=== PATIENT | female | born 1950 | race Caucasian/White ===

== ENCOUNTER 2019-12-13 12:00 | Inpatient (IN) | payer MEDICARE ==
[~2019-12-13] VITALS: Ht 177.8 cm; Wt 109.5 kg
[2019-12-13 09:51] LABS: APPEARANCE,URINE CLOUDY (CLEAR); BILIRUBIN,URINE SMALL (NEGATIVE); COLOR,URINE YELLOW (YELLOW); GLUCOSE, URINE (UA) NEGATIVE (NEGATIVE); KETONES,URINE 5 mg/dL (NEGATIVE); LEUKOCYTE ESTERASE ,URINE MODERATE (NEGATIVE); NITRATE,URINE NEGATIVE (NEGATIVE); OCCULT BLOOD,URINE NEGATIVE (NEGATIVE); PH,URINE 5.5 (5.0-8.0); PROTEIN,URINE NEGATIVE (NEGATIVE); UROBILINOGEN,URINE 0.2 mg/dL (0.2-1.0)
[2019-12-13 09:56] LABS: BACTERIA,URINE Few /HPF (None Seen); HYALINE CASTS, URINE 0-1 /LPF (0-1 /LPF); MUCUS,URINE Rare LPF (None Seen); RBC,URINE 0-1 /HPF (0-1); SQUAMOUS EPITHELIAL CELL,UR Few /HPF (0-2)
[2019-12-13 10:12] LABS: BASOPHILS % (AUTO) 0.5 % (0.0-5.0); EOSINOPHILS % (AUTO) 2.4 % (0.0-8.0); HEMATOCRIT 42.2 % (36-48); LYMPHOCYTES % (AUTO) 26.1 % (21.0-51.0); MEAN CORPUSCULAR HEMOGLOBIN 30.5 pg (27.0-33.0); MEAN CORPUSCULAR HGB CONC 32.5 g/dL (32.0-36.0); MONOCYTES % (AUTO) 6.3 % (3.0-13.0); NEUTROPHILS % (AUTO) 64.4 % (40.0-77.0); PLATELET COUNT (AUTO) 331 K/uL (130-400); RED BLOOD CELL COUNT(AUTO) 4.49 MIL/uL (4.00-5.50); RED CELL DISTRIBUTION WIDTH 13.3 % (11.0-15.5); WHITE BLOOD COUNT (AUTO) 7.5 K/uL (4.8-10.8)
[2019-12-13 10:17] LABS: CREATININE 0.8 mg/dL (0.5-1.5); POTASSIUM 4.2 mmol/L (3.5-5.1)
[2019-12-13 10:20] LABS: INR 0.97 (0.85-1.15); PROTHROMBIN TIME 10.5 SEC (9.6-11.6)
--- NOTE | 2019-12-18 11:21 | NUR ---
UA INFORMED DR. NICOLE OF ABNORMAL UA. NO ORDERS RECEIVED. PROCEED WITH PLANNED PROCEDURE
[2019-12-18 12:58] VITALS: BP 139/68
[2019-12-18] MEDS ORDERED: LOSA100T58 PO (13:50)
[2019-12-18] MEDS ORDERED: CETI-89 PO (13:50)
[2019-12-18] MEDS ORDERED: NASAL RINSE NASAL (13:50)
[2019-12-18] MEDS ORDERED: ALBU8.5H8 IH (13:50)
[2019-12-18] MEDS ORDERED: VITAD50000 PO (13:50)
[2019-12-18] MEDS ORDERED: OXYM30SP27 NS (13:50)
[2019-12-18] MEDS ORDERED: FLUT16H NS (13:50)
[2019-12-18] MEDS ORDERED: BEPO10DR OU (13:50)
[2019-12-18] MEDS ORDERED: IPRA21SP NS (13:50)
[2019-12-18] MEDS ORDERED: FLUT1AER IH (13:50)
[2019-12-18] MEDS ORDERED: FELO5TAB48 PO (13:50)
[2019-12-18] MEDS ORDERED: TRAM50TA4 PO (13:50)
[2019-12-18] MEDS ORDERED: CHLO4TAB32 PO (13:50)
[2019-12-19] VITALS (24 sets, daily range): BP systolic 111–143; BP diastolic 53–85
[2019-12-19] MEDS ORDERED: CEFAZOLIN SODIUM 1 GM VIAL IVP SCH (05:00)
--- NOTE | 2019-12-19 10:10 | NUR ---
preop pt laying comfortably on stretcher in no distress. pt oriented to call light and room. will continue to monitor pt.
[2019-12-19] MEDS ORDERED: LACTATED RINGERS 1000ML 1,000 ML IV ONE (10:21)
[2019-12-19] MEDS ORDERED: CEFAZOLIN SODIUM 1 GM VIAL ONE (14:08)
[2019-12-19] MEDS ORDERED: TRANEXAMIC ACID 1000MG/10ML ONE ×2 (14:08→19:30)
[2019-12-19] MEDS ORDERED: CELECOXIB 200 MG CAP ONE (14:12)
[2019-12-19] MEDS ORDERED: ACETAMINOPHEN EXTRA STRENGTH 500 MG TABLET ONE (14:13)
[2019-12-19] MEDS ORDERED: KETOROLAC TROMETHAMINE 15MG/ML ONE (14:14)
[2019-12-19] MEDS ORDERED: SCOPOLAMINE HYDROBROMIDE 1 EACH ADH..PATCH TD ONE (15:14)
[2019-12-19] MEDS ORDERED: ROPIVACAINE 0.5% 5MG/ML 30ML IJ ONE (15:38)
[2019-12-19] MEDS ORDERED: SCOPOLAMINE HYDROBROMIDE 1 EACH ADH..PATCH TD SCH (16:15)
[2019-12-19] MEDS ORDERED: EPHEDRINE SULFATE 50 MG/ML AMPULE ONE ×2 (16:23→17:56)
[2019-12-19] MEDS ORDERED: ROCURONIUM 10MG/1ML SYR 10 MG/ML ML ONE (16:25)
[2019-12-19] MEDS ORDERED: CEFAZOLIN SODIUM 1 GM VIAL IRRIG ONE (16:30)
[2019-12-19] MEDS ORDERED: NEOSTIGMINE 5MG/5ML SYR IV ONE (18:49)
[2019-12-19] MEDS ORDERED: GLYCOPYRROLATE 1 MG/5 ML SYRINGE ONE (18:49)
[2019-12-19] MEDS ORDERED: FERROUS FUMARATE 324 MG TABLET PO PRN (19:00)
[2019-12-19] MEDS ORDERED: POTASSIUM CHLORIDE 20MEQ/100ML 100 ML IV PRN (19:00)
[2019-12-19] MEDS ORDERED: DiphenhydrAMINE HCL 50 MG/ML VIAL IVP PRN (19:00)
[2019-12-19] MEDS ORDERED: KETOROLAC TROMETHAMINE 15MG/ML IV PRN (19:00)
[2019-12-19] MEDS ORDERED: POTASSIUM CHLORIDE 20 MEQ ERTAB PO PRN (19:00)
[2019-12-19] MEDS ORDERED: CALCIUM CARBONATE 500 MG TABLET PO PRN (19:00)
[2019-12-19] MEDS ORDERED: POTASSIUM CHLORIDE 10% ELIXIR 20 MEQ/15 ML UDCUP PO PRN (19:00)
[2019-12-19] MEDS ORDERED: LIDOCAINE HCL-MPF 1% 2ML VIAL IV PRN (19:00)
[2019-12-19] MEDS: ONDANSETRON HCL 4 MG/2 ML VIAL IVP PRN ×2 (19:48→20:05)
[2019-12-19] MEDS ORDERED: MEPERIDINE-PF 25 MG/ML SYG ONE ×2 (19:49→20:16)
[2019-12-19] MEDS ORDERED: METOCLOPRAMIDE 10 MG/2 ML VIAL ONE (20:00)
[2019-12-19] MEDS: VILANTEROL PO SCH (21:00)
[2019-12-19] MEDS: FLUTICASONE FUROATE PO SCH (21:00)
[2019-12-19] MEDS ORDERED: OXYMETAZOLINE HCL SPRAY 15 ML BOTTLE NS PRN (21:15)
[2019-12-19] MEDS ORDERED: PROAIR 90 MCG IH PRN (21:15)
[2019-12-19] MEDS ORDERED: [UNRECOGNIZED DRUG - OTHER] PO PRN (21:15)
[2019-12-19] MEDS: CELECOXIB 200 MG CAP PO SCH (21:25)
[2019-12-19] MEDS: TEMAZEPAM 15 MG CAPSULE PO PRN (21:25)
[2019-12-19] MEDS: SODIUM CHLORIDE 0.9% 1000ML 1,000 ML IV SCH (21:25)
[2019-12-19] MEDS: PREGABALIN 25 MG CAP PO SCH (21:25)
[2019-12-19] MEDS: APIXABAN 2.5 MG TABLET PO SCH (21:25)
[2019-12-19] MEDS: LOSARTAN 100 MG TABLET PO SCH (21:25)
[2019-12-19] MEDS: CETIRIZINE HCL 5 MG TABLET PO SCH (21:25)
[2019-12-19] MEDS: FAMOTIDINE 20MG TAB 20 MG TAB PO SCH (21:29)
[2019-12-19] MEDS: ACETAMINOPHEN EXTRA STRENGTH 500 MG TABLET PO SCH (21:29)
[2019-12-20] MEDS: CEFAZOLIN SODIUM 1 GM VIAL IVP SCH ×2 (00:01→08:42)
[2019-12-20] MEDS: ACETAMINOPHEN EXTRA STRENGTH 500 MG TABLET PO SCH ×3 (02:30→18:38)
[2019-12-20 03:44] LABS: MEAN CORPUSCULAR HEMOGLOBIN 30.6 pg (27.0-33.0); MEAN CORPUSCULAR HGB CONC 32.6 g/dL (32.0-36.0); MEAN CORPUSCULAR VOLUME 93.9 fL (79-99); RED BLOOD CELL COUNT(AUTO) 3.3 MIL/uL (4.00-5.50); RED CELL DISTRIBUTION WIDTH 13.4 % (11.0-15.5); WHITE BLOOD COUNT (AUTO) 14.8 K/uL (4.8-10.8)
[2019-12-20 03:59] LABS: POTASSIUM 4.3 mmol/L (3.5-5.1)
[2019-12-20 04:07] VITALS: BP 105/51
[2019-12-20] MEDS: SODIUM CHLORIDE 0.9% 1000ML 1,000 ML IV SCH ×2 (05:54→15:00)
[2019-12-20] MEDS: TRAMADOL HCL 50 MG TABLET PO PRN (05:54)
[2019-12-20] MEDS: OXYCODONE HCL 5 MG TAB PO PRN (07:54)
[2019-12-20] MEDS: POLYETHYLENE GLYCOL 3350 17 GM POWD.PACK PO SCH (08:32)
[2019-12-20] MEDS: FAMOTIDINE 20MG TAB 20 MG TAB PO SCH ×2 (08:32→20:20)
[2019-12-20] MEDS: APIXABAN 2.5 MG TABLET PO SCH ×2 (08:32→20:20)
[2019-12-20] MEDS: CELECOXIB 200 MG CAP PO SCH ×2 (08:32→20:21)
[2019-12-20] MEDS: PREGABALIN 25 MG CAP PO SCH ×2 (08:42→20:21)
[2019-12-20 08:52] VITALS: BP 132/55
[2019-12-20] MEDS: BEPREVE OU SCH (09:00)
[2019-12-20] MEDS: IPRATROPIUM PO SCH ×3 (09:00→21:00)
[2019-12-20] MEDS: FLUTICASONE PROPIONATE 50MCG/SPRAY 16 GM BOTTLE EN SCH (09:00)
[2019-12-20] MEDS: FELODIPINE 5 MG PO SCH (09:00)
--- NOTE | 2019-12-20 10:15 | NUR ---
DCP CM met with pt and spouse discussed dc plans. Pt is independent prior to admission, lives athome with spuose and 34 y/o son. Pt has a walker, handicapped toilet installed w/rails, handicapped rails around the house, bedside commode, cane, chair lift on stair. Denies any other equipments/services. Requested IRU placement as spouse will have difficulty taking care of pt fully. Pt verbalized she has DME, but if she can get a new one to go ahead and send request. CARLITA signed for [facility] and [facility]. Informed pt will send to [facility] DME request, aware cannot guarantee approvel, but if DME gets approved will have to wait delivery until after pt is discharged from IRU, pt agreeable. DC plan to [facility]. CM to continue to follow up. Addendum: 12/20/19 at 1609 by EMILI DE LA CRUZ LVN CM Amended: Links added.
--- NOTE | 2019-12-20 10:16 | NUR ---
CM Note: STR pending approval CM faxed order, clinicals, PT, Covid transfer form and covid result prior to surgery to [facility], confirmation received. Spoke to Viridiana pavon/REJI will come eval pt. Aware dcp tomorrow. Pending approval at this time. Pending recent covid test ordered this morning, will send result once available. Primary nurse Betzaida CHOW aware. CM to continue to follow up.
--- NOTE | 2019-12-20 10:17 | NUR ---
CM Note: [facility] DME pending approval CM faxed order, clinicals, PT, covid result to [facility] DME, confirmation received. CM spoke to yRan pavon/Eric, verbalized will generate script for DME and sent to CM for MD to sign. Aware pt will go to [facility] first, DME to coordinate with pt once pt dc from [facility]. Pt pending approval and delivery. Dr Brock updated pending STR and DME approval. Primary nurse Betzaida CHOW aware. CM to continue to follow up.
--- NOTE | 2019-12-20 11:26 | NUR ---
1111 patient signed IM Letter, I faxed IM Letter to [id number] and placed in chart under consent tab
[2019-12-20 11:47] VITALS: BP 103/54
--- NOTE | 2019-12-20 18:42 | NUR ---
A covid 19 PCR and Rapid was done and returned to lab at 1355. The patient needed both test to be accepted into Inpatient Rehab. The patient tolerated the procedure well and had no further questions.
[2019-12-20 19:50] VITALS: BP 121/67
[2019-12-20] MEDS: LOSARTAN 100 MG TABLET PO SCH (20:20)
[2019-12-20] MEDS: CETIRIZINE HCL 5 MG TABLET PO SCH (20:21)
[2019-12-20] MEDS: FLUTICASONE FUROATE PO SCH (21:00)
[2019-12-20] MEDS: VILANTEROL PO SCH (21:00)
[2019-12-21] VITALS (7 sets, daily range): BP systolic 101–126; BP diastolic 55–70
[2019-12-21] MEDS: CELECOXIB 200 MG CAP PO SCH ×2 (08:27→20:18)
[2019-12-21] MEDS: OXYCODONE HCL 5 MG TAB PO PRN ×2 (08:27→12:15)
[2019-12-21] MEDS: PREGABALIN 25 MG CAP PO SCH ×2 (08:27→20:18)
[2019-12-21] MEDS: POLYETHYLENE GLYCOL 3350 17 GM POWD.PACK PO SCH (08:27)
[2019-12-21] MEDS: APIXABAN 2.5 MG TABLET PO SCH ×2 (08:27→20:18)
[2019-12-21] MEDS: FAMOTIDINE 20MG TAB 20 MG TAB PO SCH ×2 (08:27→20:18)
[2019-12-21] MEDS: FLUTICASONE PROPIONATE 50MCG/SPRAY 16 GM BOTTLE EN SCH (08:37)
[2019-12-21] MEDS: BEPREVE OU SCH (08:37)
[2019-12-21] MEDS: IPRATROPIUM PO SCH ×3 (08:38→20:24)
[2019-12-21] MEDS: FELODIPINE 5 MG PO SCH (08:38)
--- NOTE | 2019-12-21 09:47 | NUR ---
CM Note: [facility] pending approval CM spoke to Constantine pavon/REJI, received updated clinicals and will forward to insurance. Pt still pending approval at this time. Dr Brock updated. Primary nurse Suzanne CHOW aware. CM to continue to follow up.
[2019-12-21] MEDS: ACETAMINOPHEN EXTRA STRENGTH 500 MG TABLET PO SCH ×2 (12:15→20:22)
--- NOTE | 2019-12-21 15:03 | NUR ---
CM Note: [facility] still pending approval CM spoke to Constantine pavon/REJI, pt still currently pending approval. Dr Brock updated. Primary nurse Suzanne RN aware. EMS arranged for today in case needed, primary nurse to call [facility] once pt ready to DC. MOT semi-filled pending to be completed once approval received, flagged in chart. CM to continue to follow up.
[2019-12-21] MEDS ORDERED: APIX2.5T PO (17:45)
[2019-12-21] MEDS ORDERED: HYDR-4457 PO (17:45)
[2019-12-21] MEDS: CETIRIZINE HCL 5 MG TABLET PO SCH (20:18)
[2019-12-21] MEDS: LOSARTAN 100 MG TABLET PO SCH (20:18)
[2019-12-21] MEDS: FLUTICASONE FUROATE PO SCH (20:24)
[2019-12-21] MEDS: VILANTEROL PO SCH (20:24)
[2019-12-22 04:25] VITALS: BP 121/58
[2019-12-22] MEDS: ACETAMINOPHEN EXTRA STRENGTH 500 MG TABLET PO SCH ×3 (06:17→15:42)
--- NOTE | 2019-12-22 07:45 | NUR ---
pt non smoker, smoking education not required. Addendum: 12/22/19 at 5445 by ANNETTE CHASE RN RN Amended: Links added.
[2019-12-22 08:00] VITALS: BP 105/57
[2019-12-22] MEDS: PREGABALIN 25 MG CAP PO SCH ×2 (08:52→20:24)
[2019-12-22] MEDS: CELECOXIB 200 MG CAP PO SCH ×2 (08:52→20:24)
[2019-12-22] MEDS: POLYETHYLENE GLYCOL 3350 17 GM POWD.PACK PO SCH (08:52)
[2019-12-22] MEDS: APIXABAN 2.5 MG TABLET PO SCH ×2 (08:52→20:25)
[2019-12-22] MEDS: FAMOTIDINE 20MG TAB 20 MG TAB PO SCH ×2 (08:52→20:24)
[2019-12-22] MEDS: IPRATROPIUM PO SCH ×3 (08:53→20:27)
[2019-12-22] MEDS: FELODIPINE 5 MG PO SCH (08:54)
[2019-12-22] MEDS: BEPREVE OU SCH (08:55)
[2019-12-22] MEDS: FLUTICASONE PROPIONATE 50MCG/SPRAY 16 GM BOTTLE EN SCH (08:56)
[2019-12-22] MEDS: TRAMADOL HCL 50 MG TABLET PO PRN ×2 (11:55→20:26)
[2019-12-22 12:00] VITALS: BP 122/58
--- NOTE | 2019-12-22 13:00 | NUR ---
ALEX DRESSING CHANGED TO LEFT HIP; PT HAS A WELL APPROX. INC. LINE W/ ABSORBABLE SUTURES IN PLACE, NO REDNESS OR DRAINAGE, SMALL AMOUNT OF GENERALIZED EDEMA TO HIP NOTED; AREA CLEANSED WITH BETADINE THEN NEW ALEX DRESSING APPLIED; PT XAVI. PROC. WELL.
--- NOTE | 2019-12-22 14:30 | NUR ---
cm note spoke to pt and updated that as per Viridiana at [facility] rehab, they have received a denial for rehab, informed her of options. to appeal, or consider snf for rehab. pt states will call cm back with her decision. updated Teressa ONLINE PROGRAM COORDINATOR for dr de la torre. and in agreement. states option for HH with dme also if needed.
[2019-12-22 16:00] VITALS: BP 120/79
--- NOTE | 2019-12-22 16:46 | NUR ---
CM note call received from pt and states that she does not want to appeal insurance denial for rehab, and does not want to go to snf, prefers home with health choice letter obtained. and have PT teaching her stair climbing, updated primary nurse zayra, also call made to Teressa CREW SUPERVISOR with dr Brock, and orders received for setup for HH, and have PT aggressively instuct pt on stair climbing.
--- NOTE | 2019-12-22 17:58 | NUR ---
dr de la torre called to check on patient and i informed him that pt did not get approval for [facility] rehab and she is currently being worked up for home health instead; i mentioned to him that pt has to go up a exterior set of stairs to get up to her home because she lives on the second floor and she has not been taught stairs yet. i asked if it would be ok for her to stay till tuesday to be taught stairs by physical therapy and he stated that would be ok.
[2019-12-22 19:00] VITALS: BP 119/59
[2019-12-22] MEDS ORDERED: BISACODYL 10 MG SUPP.RECT RC PRN (19:00)
[2019-12-22] MEDS: CETIRIZINE HCL 5 MG TABLET PO SCH (20:24)
[2019-12-22] MEDS: LOSARTAN 100 MG TABLET PO SCH (20:25)
[2019-12-22] MEDS: VILANTEROL PO SCH (20:26)
[2019-12-22] MEDS: FLUTICASONE FUROATE PO SCH (20:26)
[2019-12-22] MEDS: TEMAZEPAM 15 MG CAPSULE PO PRN (20:26)
[2019-12-23] VITALS: BP 102/55
[2019-12-23] MEDS: ACETAMINOPHEN EXTRA STRENGTH 500 MG TABLET PO SCH ×3 (03:41→19:15)
[2019-12-23 04:00] VITALS: BP 117/60
[2019-12-23] MEDS: CELECOXIB 200 MG CAP PO SCH ×2 (07:56→20:28)
[2019-12-23] MEDS: PREGABALIN 25 MG CAP PO SCH ×2 (07:56→20:28)
[2019-12-23] MEDS: FAMOTIDINE 20MG TAB 20 MG TAB PO SCH ×2 (07:56→20:27)
[2019-12-23] MEDS: POLYETHYLENE GLYCOL 3350 17 GM POWD.PACK PO SCH (07:56)
[2019-12-23] MEDS: OXYCODONE HCL 5 MG TAB PO PRN ×2 (07:58→22:10)
[2019-12-23] MEDS: APIXABAN 2.5 MG TABLET PO SCH ×2 (07:59→20:28)
[2019-12-23 08:00] VITALS: BP 122/73
[2019-12-23] MEDS: BEPREVE OU SCH (08:04)
[2019-12-23] MEDS: FLUTICASONE PROPIONATE 50MCG/SPRAY 16 GM BOTTLE EN SCH (08:04)
[2019-12-23] MEDS: FELODIPINE 5 MG PO SCH (08:05)
[2019-12-23] MEDS: IPRATROPIUM PO SCH ×3 (08:05→21:00)
[2019-12-23 12:00] VITALS: BP 124/58
--- NOTE | 2019-12-23 13:03 | NUR ---
cm note call made to [facility] [phone], and spoke to Rosy CHOW post acute care nurse practitioner. states pt is accepted, and nurse can call report at time of discharge. per patient already has her walker and 3 in 1 was delivered already from [facility].
[2019-12-23 16:00] VITALS: BP 130/78
[2019-12-23 19:00] VITALS: BP 137/67
[2019-12-23] MEDS ORDERED: HYDROMORPHONE HCL 2 MG/ML VIAL ONE (20:26)
[2019-12-23] MEDS: LOSARTAN 100 MG TABLET PO SCH (20:28)
[2019-12-23] MEDS: CETIRIZINE HCL 5 MG TABLET PO SCH (20:28)
[2019-12-23] MEDS: VILANTEROL PO SCH (21:00)
[2019-12-23] MEDS: FLUTICASONE FUROATE PO SCH (21:00)
[2019-12-23] MEDS: HYDROMORPHONE 1 MG/1 ML AMP IVP PRN ×2 (22:11→23:14)
[2019-12-24] VITALS: BP 120/81
[2019-12-24] MEDS: HYDROMORPHONE 1 MG/1 ML AMP IVP PRN ×6 (00:22→06:04)
[2019-12-24] MEDS: ACETAMINOPHEN EXTRA STRENGTH 500 MG TABLET PO SCH ×2 (02:46→12:15)
[2019-12-24 04:00] VITALS: BP 126/76
[2019-12-24] MEDS: OXYCODONE HCL 5 MG TAB PO PRN ×2 (04:05→08:28)
[2019-12-24 08:20] VITALS: BP 131/65
[2019-12-24] MEDS: FAMOTIDINE 20MG TAB 20 MG TAB PO SCH (08:28)
[2019-12-24] MEDS: PREGABALIN 25 MG CAP PO SCH (08:28)
[2019-12-24] MEDS: APIXABAN 2.5 MG TABLET PO SCH (08:28)
[2019-12-24] MEDS: CELECOXIB 200 MG CAP PO SCH (08:28)
[2019-12-24] MEDS: BEPREVE OU SCH (08:29)
[2019-12-24] MEDS: POLYETHYLENE GLYCOL 3350 17 GM POWD.PACK PO SCH (08:29)
[2019-12-24] MEDS: FELODIPINE 5 MG PO SCH (08:29)
[2019-12-24] MEDS: FLUTICASONE PROPIONATE 50MCG/SPRAY 16 GM BOTTLE EN SCH (08:29)
[2019-12-24] MEDS: IPRATROPIUM PO SCH (08:29)
[2019-12-24 11:20] VITALS: BP 130/75
--- NOTE | 2019-12-24 12:42 | NUR ---
[facility] GIVEN REPORT TO TAM ALCANTARA LVN, INSTRUCTIONS GIVEN REGARDING PLAN OF CARE, PHYSICAL THERAPY NEED, RX (CANDIE, HARDY), DRESSING TO BE REMOVED ON 12/26/19. NO CONCERNS VOICED.
--- NOTE | 2019-12-24 13:00 | NUR ---
DISCHARGE PATIENT GIVEN DISCHARGE INSTRUCTIONS AND EDUCATION FOLLOW UP APPOINTMENTS, NEW PRESCRIBED MEDICATIONS, ALEX DRESSING CARE, PHYSICAL THERAPY RECOMMENDATIONS AND S/S TO REPORT. PATIENT VERBALIZED UNDERSTANDING OF ALL EDUCATION GIVEN VIA TEACHBACK. NO DISTRESS NOTED UPON DISCHARGE. ALL BELONGINGS TAKEN WITH.
[2019-12-26] MEDS ORDERED: ERGOCALCIFEROL (VITAMIN D2) 50,000 UNIT CAPSULE PO SCH (09:00)
== END 2019-12-24 14:26 | disposition home health service (06) | DRG 470 ==
LOC: EDSTATUS 12:00 → DAHIP 12-19 09:51 → OBSVTOIN 12-19 09:51 → 3AH 12-19 20:31
PROVIDERS: ADMIT Orthopaedic Surgery; ATTEND Orthopaedic Surgery
PROC: 0SRB02Z Replacement of Left Hip Joint with Metal on Polyethylene Synthetic Substitute, Open Approach (ICD-10-PCS; principal; 2019-12-19 15:19)
DX: M16.12 Unilateral primary osteoarthritis, left hip (principal); R71.0 Precipitous drop in hematocrit; I10 Essential (primary) hypertension; M48.00 Spinal stenosis, site unspecified; M54.16 Radiculopathy, lumbar region; Z82.49 Family history of ischemic heart disease and other diseases of the circulatory system; Z83.3 Family history of diabetes mellitus; Z96.611 Presence of right artificial shoulder joint; E66.01 Morbid (severe) obesity due to excess calories; Z68.34 Body mass index [BMI] 34.0-34.9, adult; Z20.828 Contact with and (suspected) exposure to other viral communicable diseases
CPT/HCPCS: 36415; 73503; 80048; 81001; 85025; 85027; 85610; 87088; 87426; 87641; 97039; C1776; G0378; J0690; J1170; J1885; J2175; J2405; J2710; J2765; J2795; J3490; J7030; J7120; U0003

== ENCOUNTER → 2021-06-26 | Outpatient (CLI) | payer MEDICARE ==
[~2021-06-26] MED LIST: ALBU8.5H8 IH; APIX2.5T PO; BEPO10DR OU; CETI-89 PO; CHLO4TAB32 PO; FELO5TAB48 PO; FLUT16H NS; FLUT1AER IH; HYDR-4457 PO; IPRA21SP NS; LOSA100T58 PO; NASAL RINSE NASAL; OXYM30SP27 NS; TRAM50TA4 PO; VITAD50000 PO
== END ==
LOC: RAH 14:29
PROVIDERS: ATTEND Physical Medicine & Rehabilitation
DX: M16.0 Bilateral primary osteoarthritis of hip (principal)
CPT/HCPCS: 73502

== ENCOUNTER → 2021-08-26 | Outpatient (CLI) | payer MEDICARE | END | disposition home or self-care (01) | LOC: RAH 09:07 | PROVIDERS: ATTEND Physical Medicine & Rehabilitation | DX: S22.060A Wedge compression fracture of T7-T8 vertebra, initial encounter for closed fracture (principal); X58.XXXA Exposure to other specified factors, initial encounter; Y93.89 Activity, other specified; Y92.89 Other specified places as the place of occurrence of the external cause; Y99.8 Other external cause status | CPT/HCPCS: 72146 ==

== ENCOUNTER → 2021-10-19 | Outpatient (CLI) | payer MEDICARE | END | disposition home or self-care (01) | LOC: RAH 12:51 | PROVIDERS: ATTEND Physical Medicine & Rehabilitation | DX: M48.07 Spinal stenosis, lumbosacral region (principal); M48.061 Spinal stenosis, lumbar region without neurogenic claudication; M47.816 Spondylosis without myelopathy or radiculopathy, lumbar region | CPT/HCPCS: 72148 ==

== ENCOUNTER → 2022-06-26 | Outpatient (CLI) | payer OTHER | END | disposition home or self-care (01) | LOC: OIH 09:06 | PROVIDERS: ATTEND Physician Assistant Medical | DX: Z13.6 Encounter for screening for cardiovascular disorders (principal); I51.5 Myocardial degeneration | CPT/HCPCS: 75571 ==

== ENCOUNTER → 2023-06-14 | Outpatient (CLI) | payer BC ==
[~2023-06-14] MED LIST changes: -LOSA100T58 PO; +LOSA100T59 PO
== END | disposition home or self-care (01) ==
LOC: RAH 13:54
PROVIDERS: ATTEND Physician Assistant Medical
DX: I70.0 Atherosclerosis of aorta (principal); I70.203 Unspecified atherosclerosis of native arteries of extremities, bilateral legs; M79.662 Pain in left lower leg; M79.661 Pain in right lower leg
CPT/HCPCS: 93925; 93970

== ENCOUNTER → 2023-08-02 | Outpatient (CLI) | payer BC | END | disposition home or self-care (01) | LOC: RAH 13:22 | PROVIDERS: ATTEND Physician Assistant Medical | DX: Z13.820 Encounter for screening for osteoporosis (principal); M85.88 Other specified disorders of bone density and structure, other site; M81.0 Age-related osteoporosis without current pathological fracture; M85.89 Other specified disorders of bone density and structure, multiple sites | CPT/HCPCS: 77080 ==

== ENCOUNTER → 2023-08-26 | Outpatient (CLI) | payer BC | END | disposition home or self-care (01) | LOC: RAH 10:11 | PROVIDERS: ATTEND Physician Assistant | DX: M25.512 Pain in left shoulder (principal); M25.812 Other specified joint disorders, left shoulder | CPT/HCPCS: 73030 ==

== ENCOUNTER 2024-04-07 23:26 | Inpatient (IN) | payer BC, MEDICARE ==
[~2024-04-07] VITALS: Ht 177.8 cm; Wt 111.1 kg
[2024-04-08] VITALS (8 sets, daily range): BP systolic 132–173; BP diastolic 66–89; PULSE 64–74; RESP 18–20; TEMP 98–98.6; O2SAT 96–98
--- NOTE | 2024-04-08 00:48 | ERN ---
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 Patient stated that after she was helped by her son she was able to walk with some pain for the next couple of days.. She went to see her PCP who did a x-ray of her right hip which was reported as normal. The pain became intense and she is unable to ambulate for the past 2 days and was brought in by her son for evaluation Temperature 97.7 pulse 74 respirations 16 blood pressure 175/84 with a pulse oximetry of 97% on room air Chronic medical problems include hypertension chronic sinus problems, asthma/COPD, multiple orthopedic surgeries including left hip replacement, right knee surgery right shoulder surgery. Allergies: Coded Allergies: No Known Drug Allergies (Verified Allergy, Unknown, 12/18/19) Home Meds Active Scripts Hydrocodone/Acetaminophen ([place] 5-325 Tablet) 1 Each Tablet, 1-2 EACH PO Q6HPRN PRN for pain, #56 TAB Prov:GURVINDER NICOLE MD 12/21/19 Apixaban (Eliquis) 2.5 Mg Tablet, 2.5 MG PO BID, #20 TAB Prov:GURVINDER NICOLE MD 12/21/19 Reported Medications Azelastine HCl (Azelastine HCl) 137 Mcg (0.1 %) [place].pump, 1 SPRAY NS BID for 30 Days, #30 ML 0 Refills 04/08/24 Mometasone Furoate (Mometasone Furoate) 50 Mcg/Actuation [place].pump, 1 SPRAY NS DAILY for 30 Days, #17 GM 0 Refills 04/08/24 Budesonide/Formoterol Fumarate (Symbicort 80-4.5 Mcg Inhaler) 80 Mcg-4.5 Mcg/Actuation Inhr, 2 PUFF IH BID for 30 Days, GM 0 Refills 04/08/24 Oxymetazoline HCl (Afrin) 30 Ml [place], 30 ML NS AD PRN for ALLERGIES, SPRAY 12/18/19 [Nasal Rinse] No Conflict Check, NASAL DAILY 12/18/19 Chlorpheniramine Maleate (Chlorpheniramine Maleate) 4 Mg Tablet, 4 MG PO Q4HPRN PRN for COUGH, TAB 12/18/19 Cetirizine HCl (Zyrtec) 10 Mg Tablet, 10 MG PO DAILY, TAB 12/18/19 Tramadol Hcl (Tramadol HCl) 50 Mg Tablet, 50 MG PO TID, TAB 12/18/19 Albuterol Sulfate (Proair Hfa) 8.5 Gm Hfa.aer.ad, 90 MCG IH BID PRN for ASTHMA 12/18/19 Fluticasone/Vilanterol (Breo Ellipta 100-25 Mcg INH) 1 Each Aer.pow.ba, 1 EACH IH AD 12/18/19 Bepotastine Besilate (Bepreve) 10 Ml Drops, 1 DROP OU AD PRN for ALLERGIES, DROP 12/18/19 Ipratropium [place] (Ipratropium [place]) 30 Ml [place], 42 MCG NS 3-4 X DAY, SPRAY 12/18/19 Fluticasone Propionate (Fluticasone Propionate) 16 Gm [place].susp, 50 MG NS BID 12/18/19 Felodipine (Felodipine ER) 5 Mg Tab.er.24h, 5 MG PO AM, TAB 12/18/19 Losartan Potassium (Losartan Potassium) 100 Mg Tablet, 100 MG PO HS, TAB 12/18/19 Cholecalciferol (Vitamin D3) 50,000 Units Cap, 67305 UNITS PO QWEEK, CAP 12/18/19 Discontinued Reported Medications Tamsulosin HCl (Flomax) 0.4 Mg Cap.er.24h, 0.4 MG PO AM, CAPSULE.DR 04/08/24 Colchicine (Colcrys) 0.6 Mg Tab, 0.6 MG PO AD, TAB 04/08/24 Colchicine (Colcrys) 0.6 Mg Tab, 1 TAB PO DAILY for gout pain for 30 Days, #30 TAB 0 Refills 04/08/24 Propranolol HCl (Propranolol HCl) 80 Mg Cap.sa.24h, 80 MG PO HS 04/08/24 Lovastatin (Lovastatin) 20 Mg Tablet, 1 TAB PO DAILY for 30 Days, #30 TAB 0 Refills 04/08/24 Esomeprazole Magnesium (Esomeprazole Magnesium) 40 Mg Capsule.dr, 40 MG PO AM, CAP 04/08/24 Pregabalin (Pregabalin) 100 Mg Capsule, 100 CAP PO TID MDD 3 Capsule(s) for 30 Days, #90 CAP 0 Refills 04/08/24 Metformin HCl (Metformin HCl) 500 Mg Tablet, 1 TAB PO AM for 30 Days, #60 TAB 0 Refills 04/08/24 Sitagliptin Phosphate (Januvia) 100 Mg Tablet, 125 MG PO AM, TAB 04/08/24 Empagliflozin (Jardiance) 25 Mg Tablet, 1 TAB PO DAILY for 30 Days, #30 TAB 0 R efills 04/08/24 Lisinopril (Lisinopril) 10 Mg Tablet, 1 TAB PO DAILY for 30 Days, #30 TAB 0 Refills 04/08/24 Methylprednisolone (Methylprednisolone) 4 Mg Tab.ds.pk, 4 MG PO AD 04/08/24 Past Medical History Past Medical History: Hypertension, Other Additional Past Medical Hx: ALLERGIES Surgical History: Other Surgical History Other: RT KNEE, LEFT HIP, RT SHOULDER Family History: Negative Social History: ETOH History: Not Applicable RN Note Reviewed/Agreed w/PFSH: Yes Review of System Dictation Constitutional: Negative for fever,chills, and weight loss Eyes: Negative for injury, pain,redness, and discharge ENT: Negative for injury,pain or swelling Cardiovascular: Negative for chest pain, palpitations, and edema Respiratory: Negative for shortness of breath, cough, and wheezing, Abdomen/GI: Negative for abdominal pain, nausea, vomiting, diarrhea, and constipation Back: Negative for injury and pain : Negative for injury, bleeding and discharge MS/Extremity: Negative for injury and deformity complains of severe right hip pain and inability to ambulate or bear weight on the right leg. Skin: Negative for rash, and discoloration Neuro: Negative for headache, weakness, numbness, tingling, and seizure Psych: Negative for suicide ideation, homicidal ideation, and hallucinations Initial Vital Sign VS Vital Signs Date Time Temp Pulse Resp B/P (MAP) Pulse Ox O2 Delivery O2 Flow Rate FiO2 04/07/24 23:27 97.7 74 16 175/84 97 Room Air 04/08/24 00:30 0 21 Physical Exam Dictation General: awake, alert, NAD morbidly obese wheelchair-bound Head/Face: Normocephalic, atraumatic Eyes: PERRL, EOMI, vision at baseline ENT: oral cavity clear, TMs clear, no signs of infection Neck: Trachea midline, supple, no nuchal rigidity Cardiovascular: RRR, normal S1/S2, No MRGs, no JVD Respiratory: CTAB, no respiratory distress, No rales or wheezes Abdomen: Soft, non-tender, non-distended, normal bowel sounds, no guarding or rebound. Skin: Warm, dry, normal turgor, no rash MS/Extremity: Pulses equal, no cyanosis, neurovascular intact, FROM right leg appeared slightly shorter about 1 in compared to the left leg. There is no severe external rotation that I could appreciate. Right leg 1 in shorter than the left leg Neuro: COAx4, GCS 15, strength 5/5, CN 2-12 intact, normal cerebellar exam, Psych: Normal behavior, mood, and affect normal Extremities-trace edema without any palpable cords, Homans sign is negative Results (Laboratory/Radiology) Laboratory/Radiology Laboratory Tests Test 04/08/24 01:49 04/08/24 03:47 04/08/24 07:29 White Blood Count 9.3 K/uL (4.8-10.8) Red Blood Count 4.01 MIL/uL (4.00-5.50) Hemoglobin 12.4 g/dL (12.0-16.0) Hematocrit 37.9 % (36-48) Mean Corpuscular Volume 94.5 fL (79-99) Mean Corpuscular Hemoglobin 30.9 pg (27.0-33.0) Mean Corpuscular Hemoglobin Concent 32.7 g/dL (32.0-36.0) Red Cell Distribution Width 14.7 % (11.0-15.5) Platelet Count 282 K/uL (130-400) Mean Platelet Volume 9.7 fL (7.5-10.5) Immature Granulocyte % (Auto) 0.3 % (0-1) Neutrophils (%) (Auto) 67.5 % (40.0-77.0) Lymphocytes (%) (Auto) 20.9 % (21.0-51.0) L Monocytes (%) (Auto) 7.9 % (3.0-13.0) Eosinophils (%) (Auto) 2.9 % (0.0-8.0) Basophils (%) (Auto) 0.5 % (0.0-5.0) Neutrophils # (Auto) 6.3 K/uL (1.8-7.7) Lymphocytes # (Auto) 1.9 K/uL (1.0-4.8) Monocytes # (Auto) 0.7 K/uL (0.1-1.0) Eosinophils # (Auto) 0.27 K/uL (0.00-0.70) Basophils # (Auto) 0.05 K/uL (0.00-0.20) Absolute Immature Granulocyte (auto 0.03 K/uL (0-1) Nucleated Red Blood Cells 0.0 % (0.0-0.19) Sodium Level 138 mmol/L (136-145) Potassium Level 3.9 mmol/L (3.5-5.1) Chloride Level 102 mmol/L (101-111) Carbon Dioxide Level 30 mmol/L (21-32) Blood Urea Nitrogen 22 mg/dL (7-18) H Creatinine 0.8 mg/dL (0.5-1.0) Glomerular Filtration Rate Calc 77 mL/min (>90) Random Glucose 113 mg/dL (70-105) H Total Calcium 8.9 mg/dL (8.5-10.1) Phosphorus Level 4.3 mg/dL (2.5-4.9) Magnesium Level 2.00 mg/dL (1.80-2.40) Urine Color LIGHT-YELLOW (YELLOW) Urine Appearance CLEAR (CLEAR) Urine pH 5.5 (5.0-8.0) Urine Specific [place] 1.024 (1.001-1.031) Urine Protein NEGATIVE mg/dL (NEGATIVE) Urine Glucose (UA) NEGATIVE mg/dL (NEGATIVE) Urine Ketones NEGATIVE mg/dL (NEGATIVE) Urine Occult Blood NEGATIVE (NEGATIVE) Urine Nitrate NEGATIVE (NEGATIVE) Urine Bilirubin NEGATIVE mg/dL (NEGATIVE) Urine Urobilinogen 0.2 mg/dL (0.2-1.0) Urine Leukocyte Esterase 250 Ross/uL (NEGATIVE) H Urine RBC 2-5 /HPF (0-1) H Urine WBC 51-100 /HPF (0-1) H Urine Squamous Epithelial Cells RARE /HPF (0-2) Urine Bacteria None /HPF (None Seen) Prothrombin Time 10.9 SEC (9.6-11.6) Prothromb Time International Ratio 0.97 (0.85-1.15) Activated Partial Thromboplast Time 27.2 SEC (26.3-35.5) Labs Reviewed?: Yes CT Scan Comment: PATIENT: THELMA DIAZ MR#: [id number] : 1950 SEX: F AGE: 73 LOCATION: 4DH ORDER 0120 STATUS: ADM IN REPORT#: [id number] SERVICE 0118 REASON: Right hip pain after fall. Evaluate Right hip fracture ORDERING PHYSICIAN: LEONA SWAN MD PROCEDURE: PELVIS WO - CT PELVIS W/O CONTRAST CT PELVIS W/O CONTRAST HISTORY: Right hip pain after fall COMPARISON: None TECHNIQUE: Multiple sequential axial images of the pelvis were obtained from the iliac crests through symphysis pubis. Patient was not given contrast through intravenous route. Oral contrast was not given. FINDINGS/IMPRESSION: Postsurgical changes from total left hip replacement without hardware failure, fracture, or loosening. Several diverticula along the distal colon, small subserosal calcific posterior uterine body fibroid. And incompletely imaged simple left renal cyst without any acute intrapelvic abnormality. Acute slightly displaced slightly angulated subcapital fracture of the proximal right femur, without right hip dislocation. DICTATED BY: STERLING SOTO MD DATE: 04/08/24822 ELECTRONICALLY SIGNED BY: STERLING SOTO MD DATE: 04/08/24829 ED Course ED Course Orders Procedure Category Date Status Time Cbc With Differential LAB 04/08/24 Complete 00:46 Basic Metabolic Panel LAB 04/08/24 Complete 00:46 Urinalysis Profile LAB 04/08/24 Complete 00:46 Ct Pelvis W/O Contrast CT 04/08/24 Resulted 01:18 Hydromorphone 1 Mg PHA 04/08/24 Complete Inj (Dilaudid 1mg Inj 01:30 Edm Admit Bridge Order ADM 04/08/24 Transmitted 03:43 Hydromorphone 1 Mg PHA 04/08/24 Complete Inj (Dilaudid 1mg Inj 04:00 Famotidine 20mg Vial PHA 04/08/24 Complete (Pepcid 20mg Vial) 04:00 Culture Urine SUSANNE 04/08/24 In Process 04:20 Admit Orders ADM 04/08/24 Transmitted 04:24 Orthopedic Surgery CONPHYSVC 04/08/24 Transmitted Consult 08:00 Keep Patient Npo CPOE 04/08/24 Transmitted 04:24 Basic Metabolic Panel LAB 04/09/24 In Process 04:00 Cbc With Differential LAB 04/09/24 In Process 04:00 Pt And Ptt LAB 04/08/24 Complete 04:24 Magnesium LAB 04/08/24 Complete 04:24 Phosphorus LAB 04/08/24 Complete 04:24 Type And Screen BBK 04/08/24 Complete 04:24 Chest 1vw RAD 04/08/24 Resulted 04:24 12 Lead Ekg Tracing- EKG 04/08/24 Resulted Technical 04:24 Acetaminophen 650mg PHA 04/08/24 In Process Supp (Tylenol 650mg 04:30 Ondansetron 4mg Inj PHA 04/08/24 In Process (Zofran 4mg Inj) 04:30 Hydralazine 20mg Inj PHA 04/08/24 In Process (Apresoline 20mg In 04:30 Famotidine 20mg Vial PHA 04/08/24 In Process (Pepcid 20mg Vial) 09:00 Lactated Ringers PHA 04/08/24 In Process 1000ml (Lactated 04:30 Morphine 2mg Syg PHA 04/08/24 In Process (Morphine 2mg Syg) 05:00 Albuterol 0.083% PHA 04/08/24 In Process 2.5mg/3ml (Proventil 05:00 Obtain Consent For: CPOE 04/09/24 Transmitted 15:00 Regular DIET 04/08/24 Complete Breakfast *Nursing CPOE 04/08/24 Transmitted Communication: 08:57 Hip Unilat 2-3vw Right RAD 04/08/24 Resulted 09:16 Obtain Consent For: CPOE 04/09/24 Transmitted 15:00 Tramadol Hcl (Ultram) PHA 04/08/24 In Process 12:30 Amlodipine 5 Mg Tab PHA 04/09/24 In Process (Norvasc 5mg Tab) 09:00 Losartan 100 Mg PHA 04/08/24 In Process Tablet (Cozaar 100mg 21:00 Home Medication (Home PHA 04/08/24 In Process Medication) 21:00 Home Medication (Home PHA 04/08/24 In Process Medication) 14:30 Cetirizine Hcl 5 Mg PHA 04/09/24 In Process Tablet (Zyrtec 5 Mg 09:00 Vte Mod Risk NOTIF 04/08/24 Transmitted Notification 16:20 Clear Liquid DIET 04/09/24 Transmitted Breakfast Nothing By Mouth DIET 04/09/24 Transmitted Lunch Current Medications Medications (Trade) Dose Ordered Sig/Alvarado Route PRN Reason Start Time Stop Time Status Last Admin Dose Admin Famotidine (Pepcid 20mg Vial) 20 mg ONCE ONCE IV 04/08/24 04:00 04/08/24 04:01 DC 04/08/24 03:53 Hydromorphone HCl (DiLAUDid 1MG INJ) 1 mg ONCE ONCE IVP 04/08/24 01:30 04/08/24 01:31 DC 04/08/24 01:40 Hydromorphone HCl (DiLAUDid 1MG INJ) 1 mg ONCE ONCE IVP 04/08/24 04:00 04/08/24 04:01 DC 04/08/24 03:53 Vital Signs Date Time Temp Pulse Resp B/P (MAP) Pulse Ox O2 Delivery O2 Flow Rate FiO2 04/09/24 00:02 98.6 69 18 149/72 94 Room Air 04/08/24 20:23 98.4 71 18 159/89 96 Room Air 04/08/24 20:00 96 Room Air* 0 04/08/24 16:02 98.1 64 19 144/78 93 Room Air 04/08/24 11:56 98.1 74 19 166/89 98 Room Air 04/08/24 08:21 98.1 64 19 151/79 95 Room Air 04/08/24 06:40 98.6 66 20 173/84 95 Room Air 04/08/24 05:43 98.4 75 19 137/75 97 Nasal Cannula* 2 28 04/08/24 05:07 70 19 N/Cannula Low lpm 2.0 28 04/08/24 02:42 98.4 82 18 150/65 99 Room Air* 0 04/08/24 00:30 98.4 91 18 152/62 99 Room Air* 0 04/07/24 23:27 97.7 74 16 175/84 97 Room Air We will perform diagnostic labs, advanced imaging and administer medications according to the patient's complaint. Once the results are available, will review and personally interpreted the labs to rule out any acute life- threatening emergency the trach require immediate intervention and treatment. I will then re-evaluate the patient after treatment and diagnostic exams have return to determine whether the patient requires any further testing, can safely be discharged home or need further admission to hospital for additional treatment and evaluation. Labs reviewed CBC with a normal limits BNP 7 showed a BUN and creatinine of 22 and 0.8 with a glucose of 113. CT scan of the pelvis to evaluate for hip fracture as previous x-rays of the hips did not reveal any fracture. This showed a right subcapital fracture of the hip and please see the report for details I recommended admission to the hospital for pain control and orthopedic evaluation and surgical intervention and she is agreeable. Patient has been accepted by Tawanda Gaxiola, mid-level provider for hospitalist group for admission Medical Decision Making MDM MDM: Differential diagnosis: Hip fracture, sprain, ligamental tear Rationale: Tests considered and ordered secondary to shared decision making include: labs, ECG and radiology Previous outside records reviewed: Old ER visits. Risk of complication and/or morbidity or mortality of patient management: None Medications-Per medication reconciliation Need for hospitalization: Patient does meet criteria for hospitalization. Need for emergency major/minor surgery: No There are no social concerns with this patient. Prescription drug management Prescriptions will include symptomatic care Patient's prior external medical records from other ER visits were reviewed by me as indicated. Prior testing and results from previous visits were reviewed. Prior tests were taken into account with medical decision making and resource utilization, independent historian/historians were used to obtain complete medical history. I independently interpreted the test that were performed, results were reviewed by me and considered findings on radiology if ordered. Medical management and examination interpretation discussions were had by me with other qualified healthcare professionals as indicated for the patient's care. Problem List Problem List: (1) Closed right hip fracture (2) Right hip pain (3) History of fall DX & DISP Disposition: Inpatient Departure Impression: Primary Impression: Right hip pain Additional Impressions: History of fall, Closed right hip fracture Condition: Stable Additional Instructions: Patient was informed of all the diagnostic labs and procedures conducted in the emergency room today and demonstrated understanding of the results. I personally reviewed and interpreted all the diagnostic exams performed in the ER today. The patient will be admitted to the hospital for further treatment and evaluation. Disposition-admit to facility Condition-stable/guarded Course-uncertain at this time Pain status-decreased Assessment-exam unchanged Admission Certification- I certify that the patients status is appropriate and is based on my best clinical judgment and the patient's condition as documented in the medical records Referrals: DANIEL TRAN (PCP) LEONA SWAN MD Apr 08, 2024 00:48
--- NOTE | 2024-04-08 01:12 | NUR ---
UA CUP PROVIDED
[2024-04-08] MEDS: hydroMORPHone 1 MG INJ IVP ONE ×2 (01:40→03:53)
[2024-04-08 01:58] LABS: BASOPHILS # (AUTO) 0.05 K/uL (0.00-0.20); BASOPHILS % (AUTO) 0.5 % (0.0-5.0); EOSINOPHILS # (AUTO) 0.27 K/uL (0.00-0.70); EOSINOPHILS % (AUTO) 2.9 % (0.0-8.0); HEMATOCRIT 37.9 % (36-48); IMMATURE GRANULOCYTE ABSOLUTE 0.03 K/uL (0-1); LYMPHOCYTES # (AUTO) 1.9 K/uL (1.0-4.8); LYMPHOCYTES % (AUTO) 20.9 % (21.0-51.0); MEAN CORPUSCULAR HEMOGLOBIN 30.9 pg (27.0-33.0); MEAN CORPUSCULAR HGB CONC 32.7 g/dL (32.0-36.0); MEAN CORPUSCULAR VOLUME 94.5 fL (79-99); MONOCYTES # (AUTO) 0.7 K/uL (0.1-1.0); MONOCYTES % (AUTO) 7.9 % (3.0-13.0); NEUTROPHILS # (AUTO) 6.3 K/uL (1.8-7.7); NEUTROPHILS % (AUTO) 67.5 % (40.0-77.0); PLATELET COUNT (AUTO) 282 K/uL (130-400); RED BLOOD CELL COUNT(AUTO) 4.01 MIL/uL (4.00-5.50); RED CELL DISTRIBUTION WIDTH 14.7 % (11.0-15.5); WHITE BLOOD COUNT (AUTO) 9.3 K/uL (4.8-10.8)
[2024-04-08 02:05] LABS: CREATININE 0.8 mg/dL (0.5-1.0); POTASSIUM 3.9 mmol/L (3.5-5.1)
[2024-04-08] MEDS: FAMOTIDINE 20MG VIAL IV ONE (03:53)
[2024-04-08 04:13] LABS: APPEARANCE,URINE CLEAR (CLEAR); BILIRUBIN,URINE NEGATIVE (NEGATIVE); COLOR,URINE LIGHT-YELLOW (YELLOW); GLUCOSE, URINE (UA) NEGATIVE (NEGATIVE); KETONES,URINE NEGATIVE (NEGATIVE); LEUKOCYTE ESTERASE ,URINE 250 Leu/uL (NEGATIVE); NITRATE,URINE NEGATIVE (NEGATIVE); OCCULT BLOOD,URINE NEGATIVE (NEGATIVE); PH,URINE 5.5 (5.0-8.0); PROTEIN,URINE NEGATIVE (NEGATIVE); UROBILINOGEN,URINE 0.2 mg/dL (0.2-1.0)
[2024-04-08 04:20] LABS: ADD UA MICROSCOPIC YES
[2024-04-08 04:25] LABS: MUCUS,URINE RARE LPF (None Seen); SQUAMOUS EPITHELIAL CELL,UR RARE /HPF (0-2); WBC,URINE 51-100 /HPF (0-1)
--- NOTE | 2024-04-08 04:25 | HP ---
History of Present Illness Reason for Visit: hip pain History of Present Illness Ms. Cain is a 73-year-old female that was seen and examined today on 04/08/2024. Patient is a good historian and personal health. Patient reports that she came to the emergency department with a chief complaint of leg pain. Onset was 03/24/2024. Location is to right hip. Duration is on and off. Character is described as aching. Symptoms are aggravated with walking. There was no alleviating factors. Preceding event to hip pain was a fall. Patient states she went to go see her PCP and had x-rays done but they showed no fracture. Patient states since then pain has been becoming progressively worse. Today in the emergency department CBC unremarkable, chemistry unremarkable, no urinalysis has been collected or sent to lab. CT of pelvis has been performed but radiology interpretation is pending. Emergency room physician recommended that patient be admitted to the hospital for intractable hip pain, so she could be evaluated by orthopedic service. Past Medical History Patient History: Asthma MOTHER Carcinomas MOTHER (colon) Chronic obstructive pulmonary disease MOTHER Completed stroke FATHER Diabetes mellitus FATHER Hypertension MOTHER FATHER BROTHER Immunocompromised state MOTHER ADDITIONAL PAST MEDICAL HISTORY: [Hypertension, asthma, osteopenia] SOCIAL HISTORY: [Negative for smoking. Patient drinks 2 times a week usually one glass of wine that is 4 oz. Patient denies drug use. Patient lives with her Manas cain. Patient is typically independent of all her ADLs. Patient denies difficulty paying her bills. 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 Dyspnea, Edema, Lt Headedness, Other Gastrointestinal: No: Nausea, Vomiting, Abdominal Pain, Diarrhea, Constipation, Melena, Hematochezia, Other Genitourinary: No Dysuria, No Frequency, No Incontinence, No Hematuria, No Retention, No Other Musculoskeletal: leg pain; No: other, neck pain, shoulder pain, arm pain, back pain, hand pain, foot pain Skin: No Urticaria, No Rash, No Other Neurological: No: Weakness, Numbness, Incoordination, Change in speech, Confusion, Seizures, Other Allergies: Coded Allergies: No Known Drug Allergies (Verified Allergy, Unknown, 12/18/19) Scheduled Apixaban (Eliquis), 2.5 MG PO BID Cetirizine HCl (Zyrtec), 10 MG PO DAILY, (Reported) Cholecalciferol (Vitamin D3), 50,000 UNITS PO QWEEK, (Reported) Colchicine (Colcrys), 1 TAB PO DAILY, (Reported) Colchicine (Colcrys), 0.6 MG PO AD, (Reported) Empagliflozin (Jardiance), 1 TAB PO DAILY, (Reported) Esomeprazole Magnesium (Esomeprazole Magnesium), 40 MG PO AM, (Reported) Felodipine (Felodipine ER), 5 MG PO AM, (Reported) Fluticasone Propionate (Fluticasone Propionate), 50 MG NS BID, (Reported) Fluticasone/Vilanterol (Breo Ellipta 100-25 Mcg INH), 1 EACH IH AD, (Reported) Ipratropium Clark (Ipratropium Clark), 42 MCG NS 3-4 X DAY, (Reported) Lisinopril (Lisinopril), 1 TAB PO DAILY, (Reported) Losartan Potassium (Losartan Potassium), 100 MG PO HS, (Reported) Lovastatin (Lovastatin), 1 TAB PO DAILY, (Reported) Metformin HCl (Metformin HCl), 1 TAB PO AM, (Reported) Methylprednisolone (Methylprednisolone), 4 MG PO AD, (Reported) Pregabalin (Pregabalin), 100 CAP PO TID, (Reported) Propranolol HCl (Propranolol HCl), 80 MG PO HS, (Reported) Sitagliptin Phosphate (Januvia), 125 MG PO AM, (Reported) Tamsulosin HCl (Flomax), 0.4 MG PO AM, (Reported) Tramadol Hcl (Tramadol HCl), 50 MG PO TID, (Reported) [Nasal Rinse], NASAL DAILY, (Reported) Scheduled PRN Albuterol Sulfate (Proair Hfa), 90 MCG IH BID PRN for ASTHMA, (Reported) Bepotastine Besilate (Bepreve), 1 DROP OU AD PRN for ALLERGIES, (Reported) Chlorpheniramine Maleate (Chlorpheniramine Maleate), 4 MG PO Q4HPRN PRN for COUGH, (Reported) Hydrocodone/Acetaminophen ([place] 5-325 Tablet), 1-2 EACH PO Q6HPRN PRN for pain Oxymetazoline HCl (Afrin), 30 ML NS AD PRN for ALLERGIES, (Reported) Exam Vital Signs Vital Signs Date Time Temp Pulse Resp B/P (MAP) Pulse Ox O2 Delivery O2 Flow Rate FiO2 04/08/24 02:42 98.4 82 18 150/65 99 Room Air* 0 21 General Appearance: Alert, Oriented X3, Cooperative HEENT: Atraumatic, EOMI, Mucous membr. moist/pink Respiratory: Clear to auscultation, Normal air movement, NL respiratory effort Cardiovascular: Regular rate, Regular rhythm, Normal S1, Normal S2 Abdominal: Normal bowel sounds, Soft, No tenderness, No hepatospenomegaly Extremities: Other (Right lower extremity tenderness) Skin: No breakdown, No significant lesion Neuro: Normal speech, Strength at 5/5 X4 ext, Sensation intact, Cranial nerves 3-12 NL Psych/Mental Status: Mental status NL, Mood NL, Thoughts/Content NL Assessment/Plan ASSESSMENT: [ Intractable hip pain Hypertension Asthma Osteopenia] PLAN: [ Admit patient to medical floor as inpatient status. Patient will be followed by orthopedic service. Keep patient NPO. IV fluid maintenance therapy lactated Ringer's at 75 mL/HR. Check preprocedure labs, CBC, BMP, magnesium, phosphorus, PTT, UA, type and screen, EKG, CXR As needed analgesia with morphine Consider resuming home medications once they are reconciled For now, Hydralazine 10 mg IV every 4 hours for systolic blood pressure greater than 160 mmHg Albuterol 2.5 mg nebulized every 4 hours p.r.n. asthma exacerbation, wheezing, shortness and breath GI prophylaxis, famotidine DVT prophylaxis, Tanmay's and SCDs] ADVANCED CARE PLANNING 1. Which of the following were discussed? Hospice Care - Yes Therapeutic options - Yes Advance Directives - Yes- patient states he does not have any advance directives in place at this time, however has been can make decisions for her if she becomes unable. Other discussions - patient wishes to remain a full code at this time 2. Discussed with who? Patient 3. Voluntary nature of this service was explained to the patient? Yes 4. Amount of time spent - ____ 16 minutes ___ 5. Reviewed by Physician? (if this service was performed by NPP) Yes This document was generated in part using voice recognition software, occasional wrong word or sound alike substitutions may have occurred due to the inherent limitations of voice recognition software. Read the chart carefully and recognize using context, where the substitutions have occurred. Although every effort was made to edit the content, product development carpenter and typing errors may occur ATTESTATION BY PHYSICIAN I have seen and examined the patient. I reviewed the documentation, medical decision making, and treatment plan as noted by the mid-level provider above. I agree with the findings and plan of care. TONYA RAGSDALE [facility] Apr 08, 2024 04:25
[2024-04-08] MEDS ORDERED: LISI10TA24 PO (04:29)
[2024-04-08] MEDS ORDERED: EMPA25TA PO (04:29)
[2024-04-08] MEDS ORDERED: PROP80CA2 PO (04:29)
[2024-04-08] MEDS ORDERED: COLC0.6T67 PO ×2 (04:29)
[2024-04-08] MEDS ORDERED: METF-444 PO (04:29)
[2024-04-08] MEDS ORDERED: TAMS-1 PO (04:29)
[2024-04-08] MEDS ORDERED: SITA100T12 PO (04:29)
[2024-04-08] MEDS ORDERED: LOVA20TA3 PO (04:29)
[2024-04-08] MEDS ORDERED: ESOM40CA66 PO (04:29)
[2024-04-08] MEDS ORDERED: METH4TAB15 PO (04:29)
[2024-04-08] MEDS ORDERED: PREG100C56 PO (04:29)
[2024-04-08] MEDS ORDERED: acetaMINOPHEN 650 MG SUPPOSITORY RC PRN (04:30)
[2024-04-08] MEDS ORDERED: hydrALAZine 20MG/ML VIAL IV PRN (04:30)
[2024-04-08] MEDS: LACTATED RINGERS 1000ML 1,000 ML IV SCH (04:41)
[2024-04-08] MEDS ORDERED: ALBUTEROL 0.083% 2.5 MG/3 ML INH IH PRN (05:00)
[2024-04-08] MEDS ORDERED: morPHINE 2 MG SYG IVP PRN (05:00)
[2024-04-08 05:21] LABS: PHOSPHORUS 4.3 mg/dL (2.5-4.9)
--- NOTE | 2024-04-08 07:24 | EKG ---
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
[2024-04-08 07:53] LABS: INR 0.97 (0.85-1.15); PROTHROMBIN TIME 10.9 SEC (9.6-11.6)
[2024-04-08 07:55] LABS: PARTIAL THROMBOPLASTIN TIME 27.2 SEC (26.3-35.5)
--- NOTE | 2024-04-08 08:30 | HMCIMG ---
CT PELVIS W/O CONTRAST HISTORY: Right hip pain after fall COMPARISON: None TECHNIQUE: Multiple sequential axial images of the pelvis were obtained from the iliac crests through symphysis pubis. Patient was not given contrast through intravenous route. Oral contrast was not given. FINDINGS/IMPRESSION: Postsurgical changes from total left hip replacement without hardware failure, fracture, or loosening. Several diverticula along the distal colon, small subserosal calcific posterior uterine body fibroid. And incompletely imaged simple left renal cyst without any acute intrapelvic abnormality. Acute slightly displaced slightly angulated subcapital fracture of the proximal right femur, without right hip dislocation.
[2024-04-08] MEDS: FAMOTIDINE 20MG VIAL IV SCH (09:28)
--- NOTE | 2024-04-08 10:20 | HMCIMG ---
PORTABLE CHEST RADIOGRAPH INDICATION: pre procedural COMPARISON: None FINDINGS: Heart size is normal. The pulmonary vascularity and alma appear normal. No abnormal pulmonary parenchymal opacity or consolidation identified. No significant pleural effusion noted. No pneumothorax detected. IMPRESSION: No radiographic evidence for any acute cardiopulmonary process.
--- NOTE | 2024-04-08 10:58 | HMCIMG ---
RIGHT HIP, INCLUDING AP PELVIS, RADIOGRAPHS - 2 VIEWS INDICATION: Pain COMPARISON: None FINDINGS: Slightly displaced right femoral neck fracture without joint dislocation. Both femoral heads are well formed without osteochondral erosion or radiographic evidence for avascular necrosis. Total left hip prosthesis appears normal. IMPRESSION: Slightly displaced right femoral neck fracture without joint dislocation.
[2024-04-08] MEDS: ondanSETRON 4MG INJ IV PRN (11:43)
--- NOTE | 2024-04-08 12:39 | PN ---
[facility] PROGRESS NOTE Date of Service: Apr 08, 2024 Time of Service: 12:19 SUBJECTIVE: Ms. Felipe is a 73-year-old female that was seen and examined today on 04/08/2024. Patient is a good historian and personal health. Patient reports that she came to the emergency department with a chief complaint of leg pain. Onset was 03/24/2024. Location is to right hip. Duration is on and off. Character is described as aching. Symptoms are aggravated with walking. There was no alleviating factors. Preceding event to hip pain was a fall. Patient states she went to go see her PCP and had x-rays done but they showed no fracture. Patient states since then pain has been becoming progressively worse. Today in the emergency department CBC unremarkable, chemistry unremarkable, no urinalysis has been collected or sent to lab. CT of pelvis has been performed but radiology interpretation is pending. Emergency room physician recommended that patient be admitted to the hospital for intractable hip pain, so she could be evaluated by orthopedic service. 04/08/24 Patient was seen and examined at bedside in room 427. She says she slipped and fell on 03/24/24 and started having increasing pain to right hip pain so much that she could not tolerate and prompted her to come to ED. CT pelvis showed acute slightly displaced slightly angulated subcapital fracture of the proximal right femur, without right hip total dislocation. Right hip x-ray showed slightly displaced right femoral neck fracture without dislocation, both femoral heads are well formed without os DO chondral erosion or radiographic evidence for avascular necrosis. No radiographic evidence for any acute cardiopulmonary process seen on chest x-ray. Today her vitals are blood pressure 151/79, pulse rate 64, respiratory rate 19, T-max 98.1, SpO2 95% on room air. She was given Dilaudid in the ED last night that helped with the pain but she is asking for a mild pain medication, we will start her on tramadol [address] Tapia was consulted, and he plans to do right total hip replacement tomorrow morning. She has a history of right shoulder replacement in 2014, left hip replacement in 2019, right knee replacement in 2023 and she has history of osteopenia since 2020 and has been taking vitamin-D and calcium supplements. We will reconcile her home medications REVIEW OF SYSTEMS CONSTITUTIONAL: Denies fevers, chills, or night sweats. No unintentional weight loss reported. NEUROLOGICAL: Denies headache, amaurosis fugax, motor weakness, sensory deficit, vertigo/spinning sensation, gait abnormalities, or tremors. ENT: No hearing loss, otalgia, otorrhea, rhinitis, rhinorrhea, hoarseness, or sore throat. CARDIOVASCULAR: Denies any exertional angina, dyspnea on exertion, orthopnea, paroxysmal nocturnal dyspnea, palpitations, life-threatening arrhythmias, claudication. PULMONARY: Denies any shortness of breath, cough, phlegm/sputum, hemoptysis, pleuritic chest pain. SLEEP: Denies morning headaches, daytime somnolence or napping. Denies difficulty falling asleep, staying asleep, waking from sleep. Denies knowledge of snoring. GASTROINTESTINAL: Denies any type of dysphagia to either liquids or solids. Denies nausea, vomiting, pyrosis, early satiety, abdominal pain, diarrhea, constipation, or changes in stool consistency or caliber. Denies coffee-ground emesis, hematemesis, hematochezia, or melanotic stools. GENITOURINARY: Denies frequency, urgency, nocturia, hematuria or incontinence (Storage/Irritative symptoms.) Low urinary stream, straining to void, urinary intermittency or hesitancy, splitting of the voiding stream, terminal dribbling. ENDOCRINOLOGIC: Denies polyuria, polydipsia, polyphagia or heat/cold intolerances. HEMATOLOGIC: Denies thrombophilia/previous clots, or coagulopathy/bleeding disorders. ONCOLOGIC: Denies personal history of malignancy. DERMATOLOGIC: Denies rashes or pruritus. PSYCHIATRIC: Denies any suicidal or homicidal ideation. Denies hallucinations. PHYSICAL EXAM GENERAL APPEARANCE: The patient is awake, alert, and oriented, in no acute cardiopulmonary distress. NEUROLOGICAL: Cranial nerves II-XII grossly intact. Motor is 5/5 in bilateral upper and lower extremities proximal to distal. No sensory deficits. HEENT: Face is symmetric. Pupils are equal and reactive. Extraocular movements are intact. NECK: Supple. No JVD. No thyromegaly. No submental, submandibular, pre- /postauricular, occipital or supraclavicular lymphadenopathy. CHEST: Normal chest expansion. No Telemetry. LUNGS: Absence of any rales, rhonchi or any wheezing. CARDIOVASCULAR: Regular. S1 and S2 normal. No appreciable rubs, murmurs or gallops. ABDOMEN: Soft, nontender, and nondistended. There is no rebound, voluntary guarding, or rigidity. : Deferred. No Cohen. EXTREMITIES: Non-edematous and not cyanotic. No clubbing. Good capillary ref ill. SKIN: No skin breakdown. Vital Signs (last 8hr) Date Time Temp Pulse Resp B/P (MAP) Pulse Ox O2 Delivery O2 Flow Rate FiO2 04/08/24 11:56 98.1 74 19 166/89 98 Room Air 04/08/24 08:21 98.1 64 19 151/79 95 Room Air 04/08/24 06:40 98.6 66 20 173/84 95 Room Air 04/08/24 05:43 98.4 75 19 137/75 97 Nasal Cannula* 2 28 04/08/24 05:07 70 19 N/Cannula Low lpm 2.0 28 LABS: Laboratory: Test 04/08/24 07:29 04/08/24 03:47 04/08/24 01:49 Range/Units Prothrombin Time 10.9 9.6-11.6 SEC Prothromb Time International Ratio 0.97 0.85-1.15 Activated Partial Thromboplast Time 27.2 26.3-35.5 SEC Urine Color LIGHT-YELLOW YELLOW Urine Appearance CLEAR CLEAR Urine pH 5.5 5.0-8.0 Urine Specific [employer] 1.024 1.001-1.031 Urine Protein NEGATIVE NEGATIVE mg/dL Urine Glucose (UA) NEGATIVE NEGATIVE mg/dL Urine Ketones NEGATIVE NEGATIVE mg/dL Urine Occult Blood NEGATIVE NEGATIVE Urine Nitrate NEGATIVE NEGATIVE Urine Bilirubin NEGATIVE NEGATIVE mg/dL Urine Urobilinogen 0.2 0.2-1.0 mg/dL Urine Leukocyte Esterase 250 H NEGATIVE Ross/uL Urine RBC 2-5 H 0-1 /HPF Urine WBC 51-100 H 0-1 /HPF Urine Squamous Epithelial Cells RARE 0-2 /HPF Urine Bacteria None None Seen /HPF White Blood Count 9.3 4.8-10.8 K/uL Red Blood Count 4.01 4.00-5.50 MIL/uL Hemoglobin 12.4 12.0-16.0 g/dL Hematocrit 37.9 36-48 % Mean Corpuscular Volume 94.5 79-99 fL Mean Corpuscular Hemoglobin 30.9 27.0-33.0 pg Mean Corpuscular Hemoglobin Concent 32.7 32.0-36.0 g/dL Red Cell Distribution Width 14.7 11.0-15.5 % Platelet Count 282 130-400 K/uL Mean Platelet Volume 9.7 7.5-10.5 fL Immature Granulocyte % (Auto) 0.3 0-1 % Neutrophils (%) (Auto) 67.5 40.0-77.0 % Lymphocytes (%) (Auto) 20.9 L 21.0-51.0 % Monocytes (%) (Auto) 7.9 3.0-13.0 % Eosinophils (%) (Auto) 2.9 0.0-8.0 % Basophils (%) (Auto) 0.5 0.0-5.0 % Neutrophils # (Auto) 6.3 1.8-7.7 K/uL Lymphocytes # (Auto) 1.9 1.0-4.8 K/uL Monocytes # (Auto) 0.7 0.1-1.0 K/uL Eosinophils # (Auto) 0.27 0.00-0.70 K/uL Basophils # (Auto) 0.05 0.00-0.20 K/uL Absolute Immature Granulocyte (auto 0.03 0-1 K/uL Nucleated Red Blood Cells 0.0 0.0-0.19 % Sodium Level 138 136-145 mmol/L Potassium Level 3.9 3.5-5.1 mmol/L Chloride Level 102 101-111 mmol/L Carbon Dioxide Level 30 21-32 mmol/L Blood Urea Nitrogen 22 H 7-18 mg/dL Creatinine 0.8 0.5-1.0 mg/dL Glomerular Filtration Rate Calc 77 >90 mL/min Random Glucose 113 H 70-105 mg/dL Total Calcium 8.9 8.5-10.1 mg/dL Phosphorus Level 4.3 2.5-4.9 mg/dL Magnesium Level 2.00 1.80-2.40 mg/dL Current Medications Medications (Trade) Dose Ordered Sig/Alvarado Route PRN Reason Start Time Stop Time Status Last Admin Dose Admin Acetaminophen (TYLenol 650MG SUPPOSITORY) 650 mg Q6H PRN RC MILD PAIN (1-3) 04/08/24 04:30 05/08/24 04:29 Albuterol Sulfate (Proventil 0.083% 2.5mg/3ml) 2.5MG Q4H PRN IH SHORTNESS OF BREATH 04/08/24 05:00 05/08/24 04:59 Famotidine (Pepcid 20mg Vial) 20 mg DAILY IV 04/08/24 09:00 05/08/24 08:59 04/08/24 09:28 20 MG Hydralazine HCl (APRESOLine 20MG INJ) 10 mg Q6H PRN IV For:SBP above 160;DBP above 90 04/08/24 04:30 05/08/24 04:29 Lactated Ringer's 1,000 ml @ 75 mls/hr [id number] IV 04/08/24 04:30 05/08/24 04:29 04/08/24 04:41 75 MLS/HR Morphine Sulfate (morPHINE 2MG SYG) 2 mg Q4H PRN IVP SEVERE PAIN (7-10) 04/08/24 05:00 04/15/24 04:59 Ondansetron HCl (zoFRAN 4MG INJ) 4 mg Q6H PRN IV NAUSEA/VOMITING 04/08/24 04:30 05/08/24 04:29 04/08/24 11:43 4 MG Tramadol HCl (UltRAM) 50 mg Q4H PRN PO MODERATE PAIN (4-6) 04/08/24 12:30 04/13/24 12:29 DIAGNOSTICS / RADIOLOGY: REASON: Right hip pain after fall. Evaluate Right hip fracture ORDERING PHYSICIAN: LEONA SWAN MD PROCEDURE: PELVIS WO - CT PELVIS W/O CONTRAST CT PELVIS W/O CONTRAST HISTORY: Right hip pain after fall COMPARISON: None TECHNIQUE: Multiple sequential axial images of the pelvis were obtained from the iliac crests through symphysis pubis. Patient was not given contrast through intravenous route. Oral contrast was not given. FINDINGS/IMPRESSION: Postsurgical changes from total left hip replacement without hardware failure, fracture, or loosening. Several diverticula along the distal colon, small subserosal calcific posterior uterine body fibroid. And incompletely imaged simple left renal cyst without any acute intrapelvic abnormality. Acute slightly displaced slightly angulated subcapital fracture of the proximal right femur, without right hip dislocation. REASON: pre procedural ORDERING PHYSICIAN: TONYA RAGSDALE PROCEDURE: CXR1VW - CHEST 1VW PORTABLE CHEST RADIOGRAPH INDICATION: pre procedural COMPARISON: None FINDINGS: Heart size is normal. The pulmonary vascularity and amla appear normal. No abnormal pulmonary parenchymal opacity or consolidation identified. No significant pleural effusion noted. No pneumothorax detected. IMPRESSION: No radiographic evidence for any acute cardiopulmonary process. REASON: FRACTURE RT HIP ORDERING PHYSICIAN: CLARENCE TAPIA DO PROCEDURE: HIP U 2V R - HIP UNILAT 2-3VW RIGHT RIGHT HIP, INCLUDING AP PELVIS, RADIOGRAPHS - 2 VIEWS INDICATION: Pain COMPARISON: None FINDINGS: Slightly displaced right femoral neck fracture without joint dislocation. Both femoral heads are well formed without osteochondral erosion or radiographic evidence for avascular necrosis. Total left hip prosthesis appears normal. IMPRESSION: Slightly displaced right femoral neck fracture without joint dislocation. ASSESSMENT: Admit patient to medical floor as inpatient status. Patient to get total hip replacement tomorrow morning Start patient on regular diet and NPO from midnight IV fluid maintenance therapy lactated Ringer's at 75 mL/HR. Check preprocedure labs, CBC, BMP, magnesium, phosphorus, PTT, UA, type and screen, EKG, CXR As needed analgesia with morphine or tramadol Consider resuming home medications once they are reconciled For now, Hydralazine 10 mg IV every 4 hours for systolic blood pressure greater than 160 mmHg Albuterol 2.5 mg nebulized every 4 hours p.r.n. asthma exacerbation, wheezing, shortness and breath GI prophylaxis, famotidine DVT prophylaxis, Tanmay's and SCD ATTESTATION BY PHYSICIAN I have seen and examined the patient. I reviewed the documentation, medical decision making, and treatment plan as noted by the resident provider above. I agree with the findings and plan of care. Myles Ojeda MD, NIHITHA MD Apr 08, 2024 12:39
[2024-04-08] MEDS: traMADol HCL 50 MG TABLET PO PRN (12:47)
[2024-04-08] MEDS ORDERED: MOME17SP12 NS (13:14)
[2024-04-08] MEDS ORDERED: AZEL137S11 NS (13:14)
[2024-04-08] MEDS ORDERED: BUDE10.22 IH (13:14)
[2024-04-08] MEDS ORDERED: BEPOTASTINE BESILATE OU PRN (14:30)
--- NOTE | 2024-04-08 17:39 | CONS ---
ORTHOPEDIC CONSULTATION CHIEF COMPLAINT: Severe right hip and groin pain. 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 She slipped in some hydraulic fluid and fell hard on her left hip. She was able to take a few steps, but had severe pain. X-rays were taken and were negative for fractures. She continued to have pain and mentioned this to her family doctor who referred her to Dr. Hobson. However, she is waiting for a new patient visit with Dr. Hobson and had even worse pain. So she came to the emergency room, where she was reevaluated, re-x-rayed, and noted to have a displaced right femoral neck fracture. The patient was admitted, I was called for consultation. PAST MEDICAL HISTORY: The patient has a history of hypertension, asthma, and osteopenia. PAST SURGICAL HISTORY: Positive for a previous hip replacement on the left side, getting ready to do a knee replacement, and was also preparing for a right hip replacement. ALLERGIES: The patient has no known drug allergies. CURRENT MEDICATIONS: Please see the list. The patient is on Eliquis, but has platelets of only 64,000. PHYSICAL EXAMINATION: EXTREMITIES: The patient is motor and sensory intact to the toes of her right foot with a palpable dorsal pedal pulse. The patient has pain on any attempted range of motion of her right lower extremity. We see no contusions, abrasions or lacerations or palpable lymph nodes around her ankle, calf, popliteal fossa, or thigh on the right. Radiographs show a varus angulated and displaced right femoral neck fracture. VITAL SIGNS: Her temperature is 98.1, with a pulse of 64, respirations of 19, blood pressure 151/79. LABORATORY DATA: Her white count is 9.3 with a hemoglobin of 12.4, platelets of 282,000. Her sodium 138, potassium 3.9, chloride of 102, BUN of 22, and a blood sugar of 113. ASSESSMENT: Osteoarthritis of the right hip with acute femoral neck fracture. PLAN: We offered her a right total hip arthroplasty and we will try to get this done tomorrow pending medical clearance. TID: [id number] RECEIPT: [id number]
[2024-04-08] MEDS: LoSARTan 100 MG TABLET PO SCH (20:21)
[2024-04-08] MEDS: AZELASTINE HCL NASAL SCH (20:39)
[2024-04-09] VITALS (27 sets, daily range): BP systolic 121–175; BP diastolic 55–90; PULSE 56–79; RESP 16–20; TEMP 97.5–98.6; O2SAT 97–100
[2024-04-09 05:55] LABS: BASOPHILS # (AUTO) 0.06 K/uL (0.00-0.20); BASOPHILS % (AUTO) 0.8 % (0.0-5.0); EOSINOPHILS # (AUTO) 0.25 K/uL (0.00-0.70); EOSINOPHILS % (AUTO) 3.4 % (0.0-8.0); HEMATOCRIT 35.2 % (36-48); IMMATURE GRANULOCYTE ABSOLUTE 0.03 K/uL (0-1); LYMPHOCYTES # (AUTO) 1.9 K/uL (1.0-4.8); LYMPHOCYTES % (AUTO) 25.2 % (21.0-51.0); MEAN CORPUSCULAR HEMOGLOBIN 30.6 pg (27.0-33.0); MEAN CORPUSCULAR HGB CONC 32.4 g/dL (32.0-36.0); MEAN CORPUSCULAR VOLUME 94.6 fL (79-99); MONOCYTES # (AUTO) 0.6 K/uL (0.1-1.0); MONOCYTES % (AUTO) 7.7 % (3.0-13.0); NEUTROPHILS # (AUTO) 4.6 K/uL (1.8-7.7); NEUTROPHILS % (AUTO) 62.5 % (40.0-77.0); PLATELET COUNT (AUTO) 267 K/uL (130-400); RED BLOOD CELL COUNT(AUTO) 3.72 MIL/uL (4.00-5.50); RED CELL DISTRIBUTION WIDTH 14.6 % (11.0-15.5); WHITE BLOOD COUNT (AUTO) 7.4 K/uL (4.8-10.8)
[2024-04-09 06:14] LABS: CREATININE 0.7 mg/dL (0.5-1.0); POTASSIUM 3.9 mmol/L (3.5-5.1)
[2024-04-09] MEDS: amLODIPine 5 MG TAB PO SCH (08:38)
[2024-04-09] MEDS: ceTIRIzine HCL 5 MG TABLET PO SCH (08:38)
--- NOTE | 2024-04-09 10:20 | PN ---
[facility] PROGRESS NOTE Date of Service: Apr 09, 2024 Time of Service: 10:20 SUBJECTIVE: Ms. Diaz is a 73-year-old female that was seen and examined today on 04/08/2024. Patient is a good historian and personal health. Patient reports that she came to the emergency department with a chief complaint of leg pain. Onset was 03/24/2024. Location is to right hip. Duration is on and off. Character is described as aching. Symptoms are aggravated with walking. There was no alleviating factors. Preceding event to hip pain was a fall. Patient states she went to go see her PCP and had x-rays done but they showed no fracture. Patient states since then pain has been becoming progressively worse. Today in the emergency department CBC unremarkable, chemistry unremarkable, no urinalysis has been collected or sent to lab. CT of pelvis has been performed but radiology interpretation is pending. Emergency room physician recommended that patient be admitted to the hospital for intractable hip pain, so she could be evaluated by orthopedic service. 04/08/24 Patient was seen and examined at bedside in room 427. She says she slipped and fell on 03/24/24 and started having increasing pain to right hip pain so much that she could not tolerate and prompted her to come to ED. CT pelvis showed acute slightly displaced slightly angulated subcapital fracture of the proximal right femur, without right hip total dislocation. Right hip x-ray showed slightly displaced right femoral neck fracture without dislocation, both femoral heads are well formed without os DO chondral erosion or radiographic evidence for avascular necrosis. No radiographic evidence for any acute cardiopulmonary process seen on chest x-ray. Today her vitals are blood pressure 151/79, pulse rate 64, respiratory rate 19, T-max 98.1, SpO2 95% on room air. She was given Dilaudid in the ED last night that helped with the pain but she is asking for a mild pain medication, we will start her on tramadol [address] Montano was consulted, and he plans to do right total hip replacement tomorrow morning. She has a history of right shoulder replacement in 2014, left hip replacement in 2019, right knee replacement in 2023 and she has history of osteopenia since 2020 and has been taking vitamin-D and calcium supplements. We will reconcile her home medications 04/09/24 Patient was seen and examined at bedside. No acute events overnight, she is hemodynamically stable. Today her vitals are blood pressure 144/77, pulse rate 62, respiratory rate 20, T-max 98.2, SpO2 100% on room air. She has history of osteopenia, asthma, hypertension. She has history of right shoulder replacement, left hip placement and right knee placement and postop was uneventful. Her EKG shows sinus rhythm with no abnormalities According to the Galvin perioperative risk,there is a 0.2% risk of myocardial infarction or cardiac arrest, intraoperatively or up to 30 days postop. From medical standpoint, Ms. Diaz she is okay to proceed for orthopedic surgery. REVIEW OF SYSTEMS CONSTITUTIONAL: Denies fevers, chills, or night sweats. No unintentional weight loss reported. NEUROLOGICAL: Denies headache, amaurosis fugax, motor weakness, sensory deficit, vertigo/spinning sensation, gait abnormalities, or tremors. ENT: No hearing loss, otalgia, otorrhea, rhinitis, rhinorrhea, hoarseness, or sore throat. CARDIOVASCULAR: Denies any exertional angina, dyspnea on exertion, orthopnea, paroxysmal nocturnal dyspnea, palpitations, life-threatening arrhythmias, claudication. PULMONARY: Denies any shortness of breath, cough, phlegm/sputum, hemoptysis, pleuritic chest pain. SLEEP: Denies morning headaches, daytime somnolence or napping. Denies difficulty falling asleep, staying asleep, waking from sleep. Denies knowledge of snoring. GASTROINTESTINAL: Denies any type of dysphagia to either liquids or solids. Denies nausea, vomiting, pyrosis, early satiety, abdominal pain, diarrhea, constipation, or changes in stool consistency or caliber. Denies coffee-ground emesis, hematemesis, hematochezia, or melanotic stools. GENITOURINARY: Denies frequency, urgency, nocturia, hematuria or incontinence (Storage/Irritative symptoms.) Low urinary stream, straining to void, urinary intermittency or hesitancy, splitting of the voiding stream, terminal dribbling. ENDOCRINOLOGIC: Denies polyuria, polydipsia, polyphagia or heat/cold intolerances. HEMATOLOGIC: Denies thrombophilia/previous clots, or coagulopathy/bleeding disorders. ONCOLOGIC: Denies personal history of malignancy. DERMATOLOGIC: Denies rashes or pruritus. PSYCHIATRIC: Denies any suicidal or homicidal ideation. Denies hallucinations. PHYSICAL EXAM GENERAL APPEARANCE: The patient is awake, alert, and oriented, in no acute cardiopulmonary distress. NEUROLOGICAL: Cranial nerves II-XII grossly intact. Motor is 5/5 in bilateral upper and lower extremities proximal to distal. No sensory deficits. HEENT: Face is symmetric. Pupils are equal and reactive. Extraocular movements are intact. NECK: Supple. No JVD. No thyromegaly. No submental, submandibular, pre- /postauricular, occipital or supraclavicular lymphadenopathy. CHEST: Normal chest expansion. No Telemetry. LUNGS: Absence of any rales, rhonchi or any wheezing. CARDIOVASCULAR: Regular. S1 and S2 normal. No appreciable rubs, murmurs or gallops. ABDOMEN: Soft, nontender, and nondistended. There is no rebound, voluntary guarding, or rigidity. : Deferred. No Cohen. EXTREMITIES: Non-edematous and not cyanotic. No clubbing. Good capillary refill. SKIN: No skin breakdown. Vital Signs (last 8hr) Date Time Temp Pulse Resp B/P (MAP) Pulse Ox O2 Delivery O2 Flow Rate FiO2 04/09/24 07:40 98.2 62 20 144/77 100 Room Air 21 04/09/24 04:15 98.4 66 18 121/66 96 Room Air 21 LABS: Laboratory: Test 04/09/24 05:20 04/08/24 07:29 04/08/24 03:47 04/08/24 01:49 Range/Units White Blood Count 7.4 4.8-10.8 K/uL Red Blood Count 3.72 L 4.00-5.50 MIL/uL Hemoglobin 11.4 L 12.0-16.0 g/dL Hematocrit 35.2 L 36-48 % Mean Corpuscular Volume 94.6 79-99 fL Mean Corpuscular Hemoglobin 30.6 27.0-33.0 pg Mean Corpuscular Hemoglobin Concent 32.4 32.0-36.0 g/dL Red Cell Distribution Width 14.6 11.0-15.5 % Platelet Count 267 130-400 K/uL Mean Platelet Volume 9.8 7.5-10.5 fL Immature Granulocyte % (Auto) 0.4 0-1 % Neutrophils (%) (Auto) 62.5 40.0-77.0 % Lymphocytes (%) (Auto) 25.2 21.0-51.0 % Monocytes (%) (Auto) 7.7 3.0-13.0 % Eosinophils (%) (Auto) 3.4 0.0-8.0 % Basophils (%) (Auto) 0.8 0.0-5.0 % Neutrophils # (Auto) 4.6 1.8-7.7 K/uL Lymphocytes # (Auto) 1.9 1.0-4.8 K/uL Monocytes # (Auto) 0.6 0.1-1.0 K/uL Eosinophils # (Auto) 0.25 0.00-0.70 K/uL Basophils # (Auto) 0.06 0.00-0.20 K/uL Absolute Immature Granulocyte (auto 0.03 0-1 K/uL Nucleated Red Blood Cells 0.0 0.0-0.19 % Sodium Level 144 136-145 mmol/L Potassium Level 3.9 3.5-5.1 mmol/L Chloride Level 108 101-111 mmol/L Carbon Dioxide Level 31 21-32 mmol/L Blood Urea Nitrogen 10 7-18 mg/dL Creatinine 0.7 0.5-1.0 mg/dL Glomerular Filtration Rate Calc 91 >90 mL/min Random Glucose 95 70-105 mg/dL Total Calcium 8.4 L 8.5-10.1 mg/dL Prothrombin Time 10.9 9.6-11.6 SEC Prothromb Time International Ratio 0.97 0.85-1.15 Activated Partial Thromboplast Time 27.2 26.3-35.5 SEC Urine Color LIGHT-YELLOW YELLOW Urine Appearance CLEAR CLEAR Urine pH 5.5 5.0-8.0 Urine Specific [place] 1.024 1.001-1.031 Urine Protein NEGATIVE NEGATIVE mg/dL Urine Glucose (UA) NEGATIVE NEGATIVE mg/dL Urine Ketones NEGATIVE NEGATIVE mg/dL Urine Occult Blood NEGATIVE NEGATIVE Urine Nitrate NEGATIVE NEGATIVE Urine Bilirubin NEGATIVE NEGATIVE mg/dL Urine Urobilinogen 0.2 0.2-1.0 mg/dL Urine Leukocyte Esterase 250 H NEGATIVE Ross/uL Urine RBC 2-5 H 0-1 /HPF Urine WBC 51-100 H 0-1 /HPF Urine Squamous Epithelial Cells RARE 0-2 /HPF Urine Bacteria None None Seen /HPF Phosphorus Level 4.3 2.5-4.9 mg/dL Magnesium Level 2.00 1.80-2.40 mg/dL Current Medications Medications (Trade) Dose Ordered Sig/Alvarado Route PRN Reason Start Time Stop Time Status Last Admin Dose Admin Acetaminophen (TYLenol 650MG SUPPOSITORY) 650 mg Q6H PRN RC MILD PAIN (1-3) 04/08/24 04:30 05/08/24 04:29 Albuterol Sulfate (Proventil 0.083% 2.5mg/3ml) 2.5MG Q4H PRN IH SHORTNESS OF BREATH 04/08/24 05:00 05/08/24 04:59 Amlodipine Besylate (NorvASC 5MG TAB) 5 mg AM PO 04/09/24 09:00 05/09/24 08:59 04/09/24 08:38 5 MG Cetirizine HCl (ZYRtec 5 MG TABLET) 10 mg DAILY PO 04/09/24 09:00 05/09/24 08:59 04/09/24 08:38 10 MG Famotidine (Pepcid 20mg Vial) 20 mg DAILY IV 04/08/24 09:00 05/08/24 08:59 04/09/24 08:38 20 MG Home Med (Home Medication) Azelastine HCl 1 SPRAY BID NASAL 04/08/24 21:00 05/08/24 20:59 Home Med (Home Medication) Bepotastine Besilate (Bepre... AD PRN OU ALLERGIES 04/08/24 14:30 05/08/24 14:29 Hydralazine HCl (APRESOLine 20MG INJ) 10 mg Q6H PRN IV For:SBP above 160;DBP above 90 04/08/24 04:30 05/08/24 04:29 Lactated Ringer's 1,000 ml @ 75 mls/hr [id number] IV 04/08/24 04:30 05/08/24 04:29 04/09/24 08:41 75 MLS/HR Losartan Potassium (CozAAR 100MG TAB) 100 mg HS PO 04/08/24 21:00 05/08/24 20:59 04/08/24 20:21 100 MG Morphine Sulfate (morPHINE 2MG SYG) 2 mg Q4H PRN IVP SEVERE PAIN (7-10) 04/08/24 05:00 04/15/24 04:59 Ondansetron HCl (zoFRAN 4MG INJ) 4 mg Q6H PRN IV NAUSEA/VOMITING 04/08/24 04:30 05/08/24 04:29 04/08/24 11:43 4 MG Tramadol HCl (UltRAM) 50 mg Q4H PRN PO MODERATE PAIN (4-6) 04/08/24 12:30 04/13/24 12:29 04/09/24 08:38 50 MG DIAGNOSTICS / RADIOLOGY: PATIENT: THELMA DIAZ MR#: [id number] : 1950 SEX: F AGE: 73 LOCATION: [facility] ROOM/BED: [facility] ORDER 1 [id number] REPORT#: [id number] REASON: ORDERING PHYSICIAN: TONYA RAGSDALE PROCEDURE: EKG - 12 LEAD EKG TRACING- TECHNICAL [facility] Test Date: 2024-04-08 Test Time: 04:55:11 Pat Name: THELMA DIAZ Department: [facility] Room: [facility] Gender: F Supervisor [employer] Processing: [id number] : 1950 Requested By: TONYA RAGSDALE Order Number: [id number] Reading MD: Remi Whalen Measurements Intervals [place] Rate: 65 P: 62 MD: 210 QRS: 49 QRSD: 101 T: 4 QT: 403 QTc: 418 Interpretive Statements Sinus rhythm No previous ECG available for comparison Electronically Signed On 04-08-2024 10:01:04 [employer] SAL[employer] ESTIMATOR by Remi Whalen Please click the below link to view image of tracing. ASSESSMENT: Admit patient to medical floor as inpatient status. Patient to get total hip replacement tomorrow morning Start patient on regular diet and NPO from midnight IV fluid maintenance therapy lactated Ringer's at 75 mL/HR. Check preprocedure labs, CBC, BMP, magnesium, phosphorus, PTT, UA, type and screen, EKG, CXR As needed analgesia with morphine or tramadol Consider resuming home medications once they are reconciled For now, Hydralazine 10 mg IV every 4 hours for systolic blood pressure greater than 160 mmHg Albuterol 2.5 mg nebulized every 4 hours p.r.n. asthma exacerbation, wheezing, shortness and breath GI prophylaxis, famotidine DVT prophylaxis, Tanmay's and SCD ATTESTATION BY PHYSICIAN I have seen and examined the patient. I reviewed the documentation, medical decision making, and treatment plan as noted by the resident provider above. I agree with the findings and plan of care. Myles Ojeda MD, NIHITHA MD Apr 09, 2024 10:20
--- NOTE | 2024-04-09 11:30 | NUR ---
DCP Pt awake, alert, oriented X3 lives with spouses Manas Felipe [phone] and her son Juan Felipe [phone]. Pt has a cane, walker, and chair lift for stairs at home. Pt has in the past has had [facility] home health and anticipates to be discharged home with [facility] health. Addendum: 04/09/24 at 1137 by OTTO CANALES RN CM Amended: Links added.
[2024-04-09] MEDS ORDERED: proPOFol 10 MG/ML 20ML VIAL IV ONE ×2 (15:02→17:55)
[2024-04-09] MEDS ORDERED: FENTanyl CITRate PF 50 MCG/1 ML 2ML VIAL ONE (15:02)
[2024-04-09] MEDS ORDERED: rocuRONium bROMide 10MG/1ML 5ML VL ONE (15:02)
[2024-04-09] MEDS ORDERED: MIDAZOLAM HCL 1 MG/ML 2ML VIAL ONE (15:02)
[2024-04-09] MEDS ORDERED: ondanSETRON 4MG INJ ONE (15:26)
[2024-04-09] MEDS ORDERED: SCOPOLAMINE HYDROBROMIDE 1 EACH ADH..PATCH TD ONE (15:27)
[2024-04-09] MEDS ORDERED: acetaMINOPHEN 100 ML ONE (15:28)
[2024-04-09] MEDS ORDERED: ROPivacaine 0.5% 5MG/ML 30ML ONE (15:43)
[2024-04-09] MEDS ORDERED: dexaMETHasone SOD PHOSPHATE 10MG/ML 1ML VIAL ONE (15:44)
[2024-04-09] MEDS: ceFAZolin SODIUM 3 GM VIAL IVPB ONE (16:00)
[2024-04-09] MEDS ORDERED: TRANEXAMIC ACID 1000MG/10ML ONE (16:23)
[2024-04-09] MEDS ORDERED: FENTanyl CITRate PF 50 MCG/1 ML 5ML AMP IV ONE (16:38)
[2024-04-09] MEDS ORDERED: GLYCOPYRROLATE 0.2 MG/ML 5 ML VIAL ONE (17:53)
[2024-04-09] MEDS ORDERED: NEOSTIGMINE METHYLSULFATE 1MG/ML IV ONE (17:53)
--- NOTE | 2024-04-09 17:54 | HMCIMG ---
INTRAOPERATIVE FLUOROSCOPIC GUIDANCE UP TO 1 HOUR. IMPRESSION: Intraoperative fluoroscopic guidance was provided for total right hip arthroplasty, which was performed by Dr. Montano. Total fluoroscopy time was 0.1 minutes, and administered dose, 2.30 mGy. A total of 4 spot images obtained. Please refer to the orthopedic procedure note for further details.
[2024-04-09] MEDS: ketOROlac 30MG VIAL (30MG/ML) ONE (18:17)
[2024-04-09] MEDS: MEPERIDINE-PF 50 MG/ML SYG ONE (18:18)
[2024-04-09] MEDS: IpraTROPium/alBUTERol SULFATE 3 ML SOLUTION IH SCH (19:08)
--- NOTE | 2024-04-09 19:11 | NUR ---
RECEIVED PT FROM PACU. PT IS ALERT AND ORIENTED. DRESSING CLEAN DRY AND INTACT. VS STABLE.
--- NOTE | 2024-04-09 19:20 | OP ---
DATE OF PROCEDURE: 04/09/2024 PREOPERATIVE DIAGNOSIS: Right femoral neck fracture with osteoarthritis in the right hip. POSTOPERATIVE DIAGNOSIS: Right femoral neck fracture with osteoarthritis in the right hip. PROCEDURE PERFORMED: Right total hip arthroplasty using the [employer] system. SURGEON: Neo Montano MD ANESTHESIA: General by ARMOND Piper UX DESIGN LEAD: Cindi VANCE ESTIMATED BLOOD LOSS: 300 mL. SPECIMENS: None. COMPLICATIONS: None. 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 She continued to have pain that worsened, so she came back to the Emergency Room where she was diagnosed as having a displaced femoral neck fracture. The patient was admitted and I was called for consultation. I recommended a hemiarthroplasty, but due to the fact that she was actually getting ready to have a hip replacement and already has a hip replacement on the left side, we offered her right total hip, which she accepted. OPERATIVE COURSE: After informed written consent and identification of the correct operative site in the preoperative holding area, the patient was taken to the operative suite, placed in supine position. General anesthetic was administered by ARMOND Piper and the patient was placed in the left lateral recumbent position on a gel pad and a pegboard held in place with pegs and the right hip was prepped and draped in the usual sterile manner using ChloraPrep and Ioban techniques. After timeout, we made a posterolateral incision over the greater trochanter, taken through subq to the deep fascia. Opened the deep fascia along its fibers, noted a greater trochanteric bursa that was sharply resected. We then removed the external rotators from the posterior intertrochanteric line with electrocautery, preserving the piriformis. We made an L incision in the capsule and evacuated large hemarthrosis. We used an oscillating saw to do a femoral neck cleanup cut. We then used a corkscrew to remove the femoral head from the acetabulum. We released a little bit of the anterior-inferior capsule to better access the acetabulum. We then removed the labrum with electrocautery. We reamed up to a size 49 and chose a 50 cup that we press fit into place. We placed 2 screws in zone 2, both 2 cm. We then attempted snap in our polyethylene liner, but we had to remove a little more of the labral tissue. We then snapped in our posterior wall liner without complication. Our attention was directed to the femoral side where we accessed it with a [id number] retractor. We used a box and chisel to lateralize the canal. We used a canal finder and then broached up to a size 11 and used a +3 neck with high offset. This was a good trial. This was redislocated posteriorly and trials removed. We press fit our size 11 stem. We Rhoades tapered on our high offset +3 head. We reduced it, ran through its range of motion, judged to be stable. Irrigated thoroughly with saline. Piriformis had remained intact. We irrigated thoroughly with saline once again and then closed the fascia with interrupted [id number] #1 Vicryl sutures. We closed the subcutaneous with inverted interrupted 2-0 Vicryl sutures and the skin with skin clips. Applied clean, dry sterile dressing to include Xeroform, 4 x 4's, ABD and tape. The drapes were removed. The patient was rolled supine, transferred on a hospital bed, revived and taken to the recovery room in satisfactory condition. All needle counts, sponge counts and instrument counts were correct. TID: [id number] RECEIPT: [id number]
--- NOTE | 2024-04-09 19:59 | HMCIMG ---
HIP UNILAT 2-3VW RIGHT HISTORY: Postop COMPARISON: None TECHNIQUE: 3 images of right hip were obtained. FINDINGS: The study is limited due to patient body habitus. This is a suboptimal study. Total right hip replacement changes are seen. Please see postop report. Degenerative changes are seen. IMPRESSION: 1. Findings as described above.
[2024-04-09] MEDS: ceFAZolin SODIUM 1 GM VIAL IVPB SCH (23:55)
[2024-04-10] VITALS (9 sets, daily range): BP systolic 114–154; BP diastolic 48–76; PULSE 72–96; RESP 18–20; TEMP 97.9–98.8; O2SAT 100
[2024-04-10 05:39] LABS: BASOPHILS # (AUTO) 0.02 K/uL (0.00-0.20); BASOPHILS % (AUTO) 0.2 % (0.0-5.0); HEMATOCRIT 33.3 % (36-48); IMMATURE GRANULOCYTE ABSOLUTE 0.07 K/uL (0-1); LYMPHOCYTES # (AUTO) 1.1 K/uL (1.0-4.8); MEAN CORPUSCULAR HEMOGLOBIN 30.4 pg (27.0-33.0); MEAN CORPUSCULAR HGB CONC 32.7 g/dL (32.0-36.0); MEAN CORPUSCULAR VOLUME 92.8 fL (79-99); MONOCYTES # (AUTO) 0.8 K/uL (0.1-1.0); MONOCYTES % (AUTO) 6.8 % (3.0-13.0); NEUTROPHILS # (AUTO) 9.9 K/uL (1.8-7.7); NEUTROPHILS % (AUTO) 83.4 % (40.0-77.0); PLATELET COUNT (AUTO) 312 K/uL (130-400); RED BLOOD CELL COUNT(AUTO) 3.59 MIL/uL (4.00-5.50); WHITE BLOOD COUNT (AUTO) 11.8 K/uL (4.8-10.8)
[2024-04-10 05:55] LABS: CREATININE 0.7 mg/dL (0.5-1.0); POTASSIUM 4.1 mmol/L (3.5-5.1)
[2024-04-10 06:06] LABS: WBC MORPHOLOGY CONSISTENT W/DIFF
[2024-04-10] MEDS: HYDROcodone/APAP 5/325 1 TAB TABLET PO PRN ×2 (06:09→20:32)
[2024-04-10] MEDS: ceFAZolin SODIUM 1 GM VIAL IVPB SCH (09:56)
--- NOTE | 2024-04-10 15:03 | PN ---
[facility] PROGRESS NOTE Date of Service: Apr 10, 2024 Time of Service: 14:57 SUBJECTIVE: Ms. Diaz is a 73-year-old female that was seen and examined today on 04/08/2024. Patient is a good historian and personal health. Patient reports that she came to the emergency department with a chief complaint of leg pain. Onset was 03/24/2024. Location is to right hip. Duration is on and off. Character is described as aching. Symptoms are aggravated with walking. There was no alleviating factors. Preceding event to hip pain was a fall. Patient states she went to go see her PCP and had x-rays done but they showed no fracture. Patient states since then pain has been becoming progressively worse. Today in the emergency department CBC unremarkable, chemistry unremarkable, no urinalysis has been collected or sent to lab. CT of pelvis has been performed but radiology interpretation is pending. Emergency room physician recommended that patient be admitted to the hospital for intractable hip pain, so she could be evaluated by orthopedic service. 04/08/24 Patient was seen and examined at bedside in room 427. She says she slipped and fell on 03/24/24 and started having increasing pain to right hip pain so much that she could not tolerate and prompted her to come to ED. CT pelvis showed acute slightly displaced slightly angulated subcapital fracture of the proximal right femur, without right hip total dislocation. Right hip x-ray showed slightly displaced right femoral neck fracture without dislocation, both femoral heads are well formed without os DO chondral erosion or radiographic evidence for avascular necrosis. No radiographic evidence for any acute cardiopulmonary process seen on chest x-ray. Today her vitals are blood pressure 151/79, pulse rate 64, respiratory rate 19, T-max 98.1, SpO2 95% on room air. She was given Dilaudid in the ED last night that helped with the pain but she is asking for a mild pain medication, we will start her on tramadol [address] Montano was consulted, and he plans to do right total hip replacement tomorrow morning. She has a history of right shoulder replacement in 2014, left hip replacement in 2019, right knee replacement in 2023 and she has history of osteopenia since 2020 and has been taking vitamin-D and calcium supplements. We will reconcile her home medications 04/09/24 Patient was seen and examined at bedside. No acute events overnight, she is hemodynamically stable. Today her vitals are blood pressure 144/77, pulse rate 62, respiratory rate 20, T-max 98.2, SpO2 100% on room air. She has history of osteopenia, asthma, hypertension. She has history of right shoulder replacement, left hip placement and right knee placement and postop was uneventful. Her EKG shows sinus rhythm with no abnormalities According to the Galvin perioperative risk,there is a 0.2% risk of myocardial infarction or cardiac arrest, intraoperatively or up to 30 days postop. From medical standpoint, Ms. Diaz she is okay to proceed for orthopedic surgery. 04/10/24 Patient was seen and examined at bedside. No acute events overnight, she is hemodynamically stable. Today her vitals are blood pressure 114/48, pulse rate 95, respiratory rate 20, SpO2 100% on room air, T-max 98.1. She had right hip arthroplasty done by Dr. Montano yesterday, no postop complications. She is tolerating the pain well, currently on [place] 5 and morphine if needed. She complained of mild numbness around the hip and knee which Dr. Montano said was normal. Patient is working well with physical therapy, if she is ambulating well plan is to discharge her to home tomorrow with home physical therapy for 2 weeks. REVIEW OF SYSTEMS CONSTITUTIONAL: Denies fevers, chills, or night sweats. No unintentional weight loss reported. NEUROLOGICAL: Denies headache, amaurosis fugax, motor weakness, sensory deficit, vertigo/spinning sensation, gait abnormalities, or tremors. ENT: No hearing loss, otalgia, otorrhea, rhinitis, rhinorrhea, hoarseness, or sore throat. CARDIOVASCULAR: Denies any exertional angina, dyspnea on exertion, orthopnea, paroxysmal nocturnal dyspnea, palpitations, life-threatening arrhythmias, claudication. PULMONARY: Denies any shortness of breath, cough, phlegm/sputum, hemoptysis, pleuritic chest pain. SLEEP: Denies morning headaches, daytime somnolence or napping. Denies difficulty falling asleep, staying asleep, waking from sleep. Denies knowledge of snoring. GASTROINTESTINAL: Denies any type of dysphagia to either liquids or solids. Denies nausea, vomiting, pyrosis, early satiety, abdominal pain, diarrhea, constipation, or changes in stool consistency or caliber. Denies coffee-ground emesis, hematemesis, hematochezia, or melanotic stools. GENITOURINARY: Denies frequency, urgency, nocturia, hematuria or incontinence (Storage/Irritative symptoms.) Low urinary stream, straining to void, urinary intermittency or hesitancy, splitting of the voiding stream, terminal dribbling. ENDOCRINOLOGIC: Denies polyuria, polydipsia, polyphagia or heat/cold intolerances. HEMATOLOGIC: Denies thrombophilia/previous clots, or coagulopathy/bleeding disorders. ONCOLOGIC: Denies personal history of malignancy. DERMATOLOGIC: Denies rashes or pruritus. PSYCHIATRIC: Denies any suicidal or homicidal ideation. Denies hallucinations. PHYSICAL EXAM GENERAL APPEARANCE: The patient is awake, alert, and oriented, in no acute cardiopulmonary distress. NEUROLOGICAL: Cranial nerves II-XII grossly intact. Motor is 5/5 in bilateral upper and lower extremities proximal to distal. No sensory deficits. HEENT: Face is symmetric. Pupils are equal and reactive. Extraocular movements are intact. NECK: Supple. No JVD. No thyromegaly. No submental, submandibular, pre- /postauricular, occipital or supraclavicular lymphadenopathy. CHEST: Normal chest expansion. No Telemetry. LUNGS: Absence of any rales, rhonchi or any wheezing. CARDIOVASCULAR: Regular. S1 and S2 normal. No appreciable rubs, murmurs or gallops. ABDOMEN: Soft, nontender, and nondistended. There is no rebound, voluntary guarding, or rigidity. : Deferred. No Cohen. EXTREMITIES: Non-edematous and not cyanotic. No clubbing. Good capillary refill. SKIN: No skin breakdown. Vital Signs (last 8hr) Date Time Temp Pulse Resp B/P (MAP) Pulse Ox O2 Delivery O2 Flow Rate FiO2 04/10/24 11:30 97.9 79 20 139/71 95 Room Air 21 04/10/24 07:40 98.1 95 20 114/48 100 Room Air 21 LABS: Laboratory: Test 04/10/24 05:23 Range/Units White Blood Count 11.8 H 4.8-10.8 K/uL Red Blood Count 3.59 L 4.00-5.50 MIL/uL Hemoglobin 10.9 L 12.0-16.0 g/dL Hematocrit 33.3 L 36-48 % Mean Corpuscular Volume 92.8 79-99 fL Mean Corpuscular Hemoglobin 30.4 27.0-33.0 pg Mean Corpuscular Hemoglobin Concent 32.7 32.0-36.0 g/dL Red Cell Distribution Width 14.0 11.0-15.5 % Platelet Count 312 130-400 K/uL Mean Platelet Volume 9.6 7.5-10.5 fL Immature Granulocyte % (Auto) 0.6 0-1 % Neutrophils (%) (Auto) 83.4 H 40.0-77.0 % Lymphocytes (%) (Auto) 9.0 L 21.0-51.0 % Monocytes (%) (Auto) 6.8 3.0-13.0 % Eosinophils (%) (Auto) 0.0 0.0-8.0 % Basophils (%) (Auto) 0.2 0.0-5.0 % Neutrophils # (Auto) 9.9 H 1.8-7.7 K/uL Lymphocytes # (Auto) 1.1 1.0-4.8 K/uL Monocytes # (Auto) 0.8 0.1-1.0 K/uL Eosinophils # (Auto) 0.00 0.00-0.70 K/uL Basophils # (Auto) 0.02 0.00-0.20 K/uL Absolute Immature Granulocyte (auto 0.07 0-1 K/uL Nucleated Red Blood Cells 0.0 0.0-0.19 % White Cell Morphology Comment CONSISTENT W/DIFF Sodium Level 139 136-145 mmol/L Potassium Level 4.1 3.5-5.1 mmol/L Chloride Level 101 101-111 mmol/L Carbon Dioxide Level 36 H 21-32 mmol/L Blood Urea Nitrogen 10 7-18 mg/dL Creatinine 0.7 0.5-1.0 mg/dL Glomerular Filtration Rate Calc 91 >90 mL/min Random Glucose 126 H 70-105 mg/dL Total Calcium 8.4 L 8.5-10.1 mg/dL Current Medications Medications (Trade) Dose Ordered Sig/Alvarado Route PRN Reason Start Time Stop Time Status Last Admin Dose Admin Acetaminophen (TYLenol 650MG SUPPOSITORY) 650 mg Q6H PRN RC MILD PAIN (1-3) 04/08/24 04:30 05/08/24 04:29 Acetaminophen/ Hydrocodone Bitart (NORco 5/325MG) 1 tab Q4H PRN PO MODERATE PAIN (4-6) 04/09/24 22:00 04/14/24 21:59 04/10/24 06:09 1 TAB Acetaminophen/ Hydrocodone Bitart (NORco 5/325MG) 2 tab Q4H PRN PO SEVERE PAIN (7-10) 04/09/24 22:00 04/14/24 21:59 Albuterol (DUOneb) 1 udvial ONCE IH 04/09/24 18:30 04/09/24 22:30 DC 04/09/24 19:08 1 UDVIAL Albuterol Sulfate (Proventil 0.083% 2.5mg/3ml) 2.5MG Q4H PRN IH SHORTNESS OF BREATH 04/08/24 05:00 05/08/24 04:59 Amlodipine Besylate (NorvASC 5MG TAB) 5 mg AM PO 04/09/24 09:00 05/09/24 08:59 04/09/24 08:38 5 MG Cefazolin Sodium (ANCEF 1 gm vial) 1 gm Q8H IVPB 04/10/24 00:00 04/10/24 08:01 DC 04/10/24 09:55 1 GM Cefazolin Sodium (ANCEF 1 gm vial) 1 gm Q8H IVPB 04/10/24 10:00 04/10/24 10:01 DC Cetirizine HCl (ZYRtec 5 MG TABLET) 10 mg DAILY PO 04/09/24 09:00 05/09/24 08:59 04/10/24 09:55 10 MG Famotidine (Pepcid 20mg Vial) 20 mg DAILY IV 04/08/24 09:00 05/08/24 08:59 04/10/24 09:55 20 MG Home Med (Home Medication) Azelastine HCl 1 SPRAY BID NASAL 04/08/24 21:00 05/08/24 20:59 Home Med (Home Medication) Bepotastine Besilate (Bepre... AD PRN OU ALLERGIES 04/08/24 14:30 05/08/24 14:29 Hydralazine HCl (APRESOLine 20MG INJ) 10 mg Q6H PRN IV For:SBP above 160;DBP above 90 04/08/24 04:30 05/08/24 04:29 Lactated Ringer's 1,000 ml @ 75 mls/hr [id number] IV 04/08/24 04:30 05/08/24 04:29 04/10/24 09:56 75 MLS/HR Losartan Potassium (CozAAR 100MG TAB) 100 mg HS PO 04/08/24 21:00 05/08/24 20:59 04/09/24 20:31 100 MG Morphine Sulfate (morPHINE 2MG SYG) 2 mg Q4H PRN IVP SEVERE PAIN (7-10) 04/08/24 05:00 04/15/24 04:59 Ondansetron HCl (zoFRAN 4MG INJ) 4 mg Q6H PRN IV NAUSEA/VOMITING 04/08/24 04:30 05/08/24 04:29 04/08/24 11:43 4 MG Tramadol HCl (UltRAM) 50 mg Q4H PRN PO MODERATE PAIN (4-6) 04/08/24 12:30 04/09/24 21:52 DC 04/09/24 20:30 50 MG DIAGNOSTICS / RADIOLOGY: PATIENT: THELMA DIAZ MR#: [id number] : 1950 SEX: F AGE: 73 LOCATION: [facility] ORDER 12 STATUS: ADM IN REPORT#: [id number] SERVICE 180 REASON: post op [place] ORDERING PHYSICIAN: CLARENCE MONTANO DO PROCEDURE: HIP U 2V R - HIP UNILAT 2-3VW RIGHT HIP UNILAT 2-3VW RIGHT HISTORY: Postop COMPARISON: None TECHNIQUE: 3 images of right hip were obtained. FINDINGS: The study is limited due to patient body habitus. This is a suboptimal study. Total right hip replacement changes are seen. Please see postop report. Degenerative changes are seen. IMPRESSION: 1. Findings as described above. DICTATED BY: CLARENCE MEADOWS MD DATE: 04/09/241950 ELECTRONICALLY SIGNED BY: CLARENCE MEADOWS MD DATE: 04/09/241958 PATIENT: THELMA DIAZ MR#: [id number] : 1950 SEX: F AGE: 73 LOCATION: [facility] ORDER 153 STATUS: ADM IN REPORT#: [id number] SERVICE 170 REASON: RT total hip arthroplasty ORDERING PHYSICIAN: CLARENCE MONTANO DO PROCEDURE: HIP U 4V R - HIP UNILAT 4VW RIGHT INTRAOPERATIVE FLUOROSCOPIC GUIDANCE UP TO 1 HOUR. IMPRESSION: Intraoperative fluoroscopic guidance was provided for total right hip arthroplasty, which was performed by Dr. Montano. Total fluoroscopy time was 0.1 minutes, and administered dose, 2.30 mGy. A total of 4 spot images obtained. Please refer to the orthopedic procedure note for further details. DICTATED BY: STERLING SOOT MD DATE: 04/09/241749 ELECTRONICALLY SIGNED BY: STERLING SOTO MD DATE: 04/09/241753 ASSESSMENT: POD 1 Right hip arthroplasty with Dr. Montano Physical therapy as tolerated Start patient on soft diet IV fluid maintenance therapy lactated Ringer's at 75 mL/HR. Check preprocedure labs, CBC, BMP, magnesium, phosphorus, PTT, UA, type and screen, EKG, CXR As needed analgesia with morphine or tramadol Home meds reconciled For now, Hydralazine 10 mg IV every 4 hours for systolic blood pressure greater than 160 mmHg Albuterol 2.5 mg nebulized every 4 hours p.r.n. asthma exacerbation, wheezing, shortness and breath GI prophylaxis, famotidine DVT prophylaxis, Tanmay's and SCD ATTESTATION BY PHYSICIAN I have seen and examined the patient. I reviewed the documentation, medical decision making, and treatment plan as noted by the resident provider above. I agree with the findings and plan of care. Myles Ojeda MD, NIHITHA MD Apr 10, 2024 15:03
--- NOTE | 2024-04-10 15:32 | PN ---
SUBJECTIVE: The patient is postop day #1, right total hip arthroplasty for a femoral neck fracture and osteoarthritis of the right hip. She states that her block is beginning to wear off and she is starting to have more feelings in her thigh. She did take some steps with physical therapy. PHYSICAL EXAMINATION: EXTREMITIES: She is motor and sensory intact to the toes of her right foot. Her dressing is clean, dry and in place on her right thigh. LABORATORY DATA: Her white count today is 11.0, hemoglobin of 10.9, hematocrit of 33.3 and platelets of 312,000. Sodium 139, potassium 4.1, chloride 101 and a blood sugar of 126. ASSESSMENT: Postop day #1, right total hip for femoral neck fracture. PLAN: The patient is ortho stable for transfer to the rehab. She is to continue weightbearing as tolerated right lower extremity. They are to do dressing changes prior to discharge. TID: [id number] RECEIPT: [id number]
[2024-04-10] MEDS: polyETHYLene GLYCol 3350 17 GM POWD.PACK PO SCH (15:48)
[2024-04-11] VITALS (8 sets, daily range): BP systolic 122–136; BP diastolic 59–75; PULSE 88–94; RESP 18–20; TEMP 98–98.7; O2SAT 96–100
[2024-04-11 06:15] LABS: BASOPHILS # (AUTO) 0.04 K/uL (0.00-0.20); BASOPHILS % (AUTO) 0.3 % (0.0-5.0); EOSINOPHILS # (AUTO) 0.09 K/uL (0.00-0.70); EOSINOPHILS % (AUTO) 0.8 % (0.0-8.0); HEMATOCRIT 31.8 % (36-48); IMMATURE GRANULOCYTE ABSOLUTE 0.06 K/uL (0-1); LYMPHOCYTES # (AUTO) 1.4 K/uL (1.0-4.8); LYMPHOCYTES % (AUTO) 12.1 % (21.0-51.0); MEAN CORPUSCULAR HEMOGLOBIN 30.5 pg (27.0-33.0); MEAN CORPUSCULAR VOLUME 92.4 fL (79-99); MONOCYTES # (AUTO) 1.2 K/uL (0.1-1.0); MONOCYTES % (AUTO) 10.5 % (3.0-13.0); NEUTROPHILS # (AUTO) 8.9 K/uL (1.8-7.7); NEUTROPHILS % (AUTO) 75.8 % (40.0-77.0); PLATELET COUNT (AUTO) 281 K/uL (130-400); RED BLOOD CELL COUNT(AUTO) 3.44 MIL/uL (4.00-5.50); RED CELL DISTRIBUTION WIDTH 14.6 % (11.0-15.5); WHITE BLOOD COUNT (AUTO) 11.7 K/uL (4.8-10.8)
[2024-04-11 06:23] LABS: CREATININE 0.8 mg/dL (0.5-1.0); POTASSIUM 3.6 mmol/L (3.5-5.1)
--- NOTE | 2024-04-11 06:50 | NUR ---
patient refused at this time to get up to chair, patient stated that she will a bit later. will pass task in report.
--- NOTE | 2024-04-11 14:25 | PN ---
[facility] PROGRESS NOTE Date of Service: Apr 11, 2024 Time of Service: 14:17 SUBJECTIVE: Ms. Felipe is a 73-year-old female that was seen and examined today on 04/08/2024. Patient is a good historian and personal health. Patient reports that she came to the emergency department with a chief complaint of leg pain. Onset was 03/24/2024. Location is to right hip. Duration is on and off. Character is described as aching. Symptoms are aggravated with walking. There was no alleviating factors. Preceding event to hip pain was a fall. Patient states she went to go see her PCP and had x-rays done but they showed no fracture. Patient states since then pain has been becoming progressively worse. Today in the emergency department CBC unremarkable, chemistry unremarkable, no urinalysis has been collected or sent to lab. CT of pelvis has been performed but radiology interpretation is pending. Emergency room physician recommended that patient be admitted to the hospital for intractable hip pain, so she could be evaluated by orthopedic service. 04/08/24 Patient was seen and examined at bedside in room 427. She says she slipped and fell on 03/24/24 and started having increasing pain to right hip pain so much that she could not tolerate and prompted her to come to ED. CT pelvis showed acute slightly displaced slightly angulated subcapital fracture of the proximal right femur, without right hip total dislocation. Right hip x-ray showed slightly displaced right femoral neck fracture without dislocation, both femoral heads are well formed without os DO chondral erosion or radiographic evidence for avascular necrosis. No radiographic evidence for any acute cardiopulmonary process seen on chest x-ray. Today her vitals are blood pressure 151/79, pulse rate 64, respiratory rate 19, T-max 98.1, SpO2 95% on room air. She was given Dilaudid in the ED last night that helped with the pain but she is asking for a mild pain medication, we will start her on tramadol [address] Montano was consulted, and he plans to do right total hip replacement tomorrow morning. She has a history of right shoulder replacement in 2014, left hip replacement in 2019, right knee replacement in 2023 and she has history of osteopenia since 2020 and has been taking vitamin-D and calcium supplements. We will reconcile her home medications 04/09/24 Patient was seen and examined at bedside. No acute events overnight, she is hemodynamically stable. Today her vitals are blood pressure 144/77, pulse rate 62, respiratory rate 20, T-max 98.2, SpO2 100% on room air. She has history of osteopenia, asthma, hypertension. She has history of right shoulder replacement, left hip placement and right knee placement and postop was uneventful. Her EKG shows sinus rhythm with no abnormalities According to the Galvin perioperative risk,there is a 0.2% risk of myocardial infarction or cardiac arrest, intraoperatively or up to 30 days postop. From medical standpoint, Ms. Felipe she is okay to proceed for orthopedic surgery. 04/10/24 Patient was seen and examined at bedside. No acute events overnight, she is hemodynamically stable. Today her vitals are blood pressure 114/48, pulse rate 95, respiratory rate 20, SpO2 100% on room air, T-max 98.1. She had right hip arthroplasty done by Dr. Montano yesterday, no postop complications. She is tolerating the pain well, currently on [place] 5 and morphine if needed. She complained of mild numbness around the hip and knee which Dr. Montano said was normal. Patient is working well with physical therapy, if she is ambulating well plan is to discharge her to home tomorrow with home physical therapy for 2 weeks. 04/11/24 Patient was seen and examined at bedside. No acute events overnight, she is hemodynamically stable. Vitals are blood pressure 131/75, pulse rate 90, respiratory rate 20, SpO2 99% on room air. She worked with PT earlier this morning and complained of pain to her right hip and nausea and said her knee was giving away. Her pain got better with norco, but she looks pale . She does not want to go to rehab facility. She had a bowel movement earlier this morning. She denies chest pain or shortness of breath or dizziness or palpitations or numbness or tingling. REVIEW OF SYSTEMS CONSTITUTIONAL: Denies fevers, chills, or night sweats. No unintentional weight loss reported. NEUROLOGICAL: Denies headache, amaurosis fugax, motor weakness, sensory deficit, vertigo/spinning sensation, gait abnormalities, or tremors. ENT: No hearing loss, otalgia, otorrhea, rhinitis, rhinorrhea, hoarseness, or sore throat. CARDIOVASCULAR: Denies any exertional angina, dyspnea on exertion, orthopnea, paroxysmal nocturnal dyspnea, palpitations, life-threatening arrhythmias, cassie dication. PULMONARY: Denies any shortness of breath, cough, phlegm/sputum, hemoptysis, pleuritic chest pain. SLEEP: Denies morning headaches, daytime somnolence or napping. Denies difficulty falling asleep, staying asleep, waking from sleep. Denies knowledge of snoring. GASTROINTESTINAL: Denies any type of dysphagia to either liquids or solids. Denies nausea, vomiting, pyrosis, early satiety, abdominal pain, diarrhea, constipation, or changes in stool consistency or caliber. Denies coffee-ground emesis, hematemesis, hematochezia, or melanotic stools. GENITOURINARY: Denies frequency, urgency, nocturia, hematuria or incontinence (Storage/Irritative symptoms.) Low urinary stream, straining to void, urinary intermittency or hesitancy, splitting of the voiding stream, terminal dribbling. ENDOCRINOLOGIC: Denies polyuria, polydipsia, polyphagia or heat/cold intolerances. HEMATOLOGIC: Denies thrombophilia/previous clots, or coagulopathy/bleeding disorders. ONCOLOGIC: Denies personal history of malignancy. DERMATOLOGIC: Denies rashes or pruritus. PSYCHIATRIC: Denies any suicidal or homicidal ideation. Denies hallucinations. PHYSICAL EXAM GENERAL APPEARANCE: The patient is awake, alert, and oriented, in no acute cardiopulmonary distress. NEUROLOGICAL: Cranial nerves II-XII grossly intact. Motor is 5/5 in bilateral upper and lower extremities proximal to distal. No sensory deficits. HEENT: Face is symmetric. Pupils are equal and reactive. Extraocular movements are intact. NECK: Supple. No JVD. No thyromegaly. No submental, submandibular, pre- /postauricular, occipital or supraclavicular lymphadenopathy. CHEST: Normal chest expansion. No Telemetry. LUNGS: Absence of any rales, rhonchi or any wheezing. CARDIOVASCULAR: Regular. S1 and S2 normal. No appreciable rubs, murmurs or gallops. ABDOMEN: Soft, nontender, and nondistended. There is no rebound, voluntary guarding, or rigidity. : Deferred. No Cohen. EXTREMITIES: Non-edematous and not cyanotic. No clubbing. Good capillary refill. SKIN: No skin breakdown. Vital Signs (last 8hr) Date Time Temp Pulse Resp B/P (MAP) Pulse Ox O2 Delivery O2 Flow Rate FiO2 04/11/24 11:54 98.2 90 20 131/75 99 Room Air 21 04/11/24 08:00 96 Room Air* 0 21 04/11/24 07:40 98.2 89 20 136/59 96 Room Air 21 04/11/24 07:06 88 18 N/A Room Air 21 LABS: Laboratory: Test 04/11/24 05:57 04/10/24 05:23 Range/Units White Blood Count 11.7 H 4.8-10.8 K/uL Red Blood Count 3.44 L 4.00-5.50 MIL/uL Hemoglobin 10.5 L 12.0-16.0 g/dL Hematocrit 31.8 L 36-48 % Mean Corpuscular Volume 92.4 79-99 fL Mean Corpuscular Hemoglobin 30.5 27.0-33.0 pg Mean Corpuscular Hemoglobin Concent 33.0 32.0-36.0 g/dL Red Cell Distribution Width 14.6 11.0-15.5 % Platelet Count 281 130-400 K/uL Mean Platelet Volume 9.6 7.5-10.5 fL Immature Granulocyte % (Auto) 0.5 0-1 % Neutrophils (%) (Auto) 75.8 40.0-77.0 % Lymphocytes (%) (Auto) 12.1 L 21.0-51.0 % Monocytes (%) (Auto) 10.5 3.0-13.0 % Eosinophils (%) (Auto) 0.8 0.0-8.0 % Basophils (%) (Auto) 0.3 0.0-5.0 % Neutrophils # (Auto) 8.9 H 1.8-7.7 K/uL Lymphocytes # (Auto) 1.4 1.0-4.8 K/uL Monocytes # (Auto) 1.2 H 0.1-1.0 K/uL Eosinophils # (Auto) 0.09 0.00-0.70 K/uL Basophils # (Auto) 0.04 0.00-0.20 K/uL Absolute Immature Granulocyte (auto 0.06 0-1 K/uL Nucleated Red Blood Cells 0.0 0.0-0.19 % Sodium Level 141 136-145 mmol/L Potassium Level 3.6 3.5-5.1 mmol/L Chloride Level 104 101-111 mmol/L Carbon Dioxide Level 31 21-32 mmol/L Blood Urea Nitrogen 16 7-18 mg/dL Creatinine 0.8 0.5-1.0 mg/dL Glomerular Filtration Rate Calc 77 >90 mL/min Random Glucose 123 H 70-105 mg/dL Total Calcium 8.1 L 8.5-10.1 mg/dL White Cell Morphology Comment CONSISTENT W/DIFF Current Medications Medications (Trade) Dose Ordered Sig/Alvarado Route PRN Reason Start Time Stop Time Status Last Admin Dose Admin Acetaminophen (TYLenol 650MG SUPPOSITORY) 650 mg Q6H PRN RC MILD PAIN (1-3) 04/08/24 04:30 05/08/24 04:29 Acetaminophen/ Hydrocodone Bitart (NORco 5/325MG) 1 tab Q4H PRN PO MODERATE PAIN (4-6) 04/09/24 22:00 04/14/24 21:59 04/11/24 06:21 1 TAB Acetaminophen/ Hydrocodone Bitart (NORco 5/325MG) 2 tab Q4H PRN PO SEVERE PAIN (7-10) 04/09/24 22:00 04/14/24 21:59 04/11/24 13:05 2 TAB Albuterol (DUOneb) 1 udvial ONCE IH 04/09/24 18:30 04/09/24 22:30 DC 04/09/24 19:08 1 UDVIAL Albuterol Sulfate (Proventil 0.083% 2.5mg/3ml) 2.5MG Q4H PRN IH SHORTNESS OF BREATH 04/08/24 05:00 05/08/24 04:59 Amlodipine Besylate (NorvASC 5MG TAB) 5 mg AM PO 04/09/24 09:00 05/09/24 08:59 04/11/24 08:42 5 MG Cefazolin Sodium (ANCEF 1 gm vial) 1 gm Q8H IVPB 04/10/24 00:00 04/10/24 08:01 DC 04/10/24 09:55 1 GM Cefazolin Sodium (ANCEF 1 gm vial) 1 gm Q8H IVPB 04/10/24 10:00 04/10/24 10:01 DC Cetirizine HCl (ZYRtec 5 MG TABLET) 10 mg DAILY PO 04/09/24 09:00 05/09/24 08:59 04/11/24 08:42 10 MG Famotidine (Pepcid 20mg Vial) 20 mg DAILY IV 04/08/24 09:00 05/08/24 08:59 04/11/24 08:42 20 MG Home Med (Home Medication) Azelastine HCl 1 SPRAY BID NASAL 04/08/24 21:00 05/08/24 20:59 Home Med (Home Medication) Bepotastine Besilate (Bepre... AD PRN OU ALLERGIES 04/08/24 14:30 05/08/24 14:29 Hydralazine HCl (APRESOLine 20MG INJ) 10 mg Q6H PRN IV For:SBP above 160;DBP above 90 04/08/24 04:30 05/08/24 04:29 Lactated Ringer's 1,000 ml @ 75 mls/hr [id number] IV 04/08/24 04:30 05/08/24 04:29 04/10/24 09:56 75 MLS/HR Losartan Potassium (CozAAR 100MG TAB) 100 mg HS PO 04/08/24 21:00 05/08/24 20:59 04/10/24 20:32 100 MG Morphine Sulfate (morPHINE 2MG SYG) 2 mg Q4H PRN IVP SEVERE PAIN (7-10) 04/08/24 05:00 04/15/24 04:59 Ondansetron HCl (zoFRAN 4MG INJ) 4 mg Q6H PRN IV NAUSEA/VOMITING 04/08/24 04:30 05/08/24 04:29 04/08/24 11:43 4 MG Polyethylene Glycol (MIRalax 3350 17 GM POWD.PACK) 17 gm DAILY PO 04/10/24 16:00 05/10/24 15:59 04/11/24 08:42 17 GM Tramadol HCl (UltRAM) 50 mg Q4H PRN PO MODERATE PAIN (4-6) 04/08/24 12:30 04/09/24 21:52 DC 04/09/24 20:30 50 MG DIAGNOSTICS / RADIOLOGY: [ ] ASSESSMENT: POD 2 Right hip arthroplasty with Dr. Montano Physical therapy as tolerated Start patient on soft diet IV fluid maintenance therapy lactated Ringer's at 75 mL/HR. Check preprocedure labs, CBC, BMP, magnesium, phosphorus, PTT, UA, type and screen, EKG, CXR As needed analgesia with morphine or tramadol Home meds reconciled For now, Hydralazine 10 mg IV every 4 hours for systolic blood pressure greater than 160 mmHg Albuterol 2.5 mg nebulized every 4 hours p.r.n. asthma exacerbation, wheezing, shortness and breath GI prophylaxis, famotidine DVT prophylaxis, Tanmay's and SCD ATTESTATION BY PHYSICIAN I have seen and examined the patient. I reviewed the documentation, medical decision making, and treatment plan as noted by the resident provider above. I agree with the findings and plan of care. Myles Ojeda MD, NIHITHA MD Apr 11, 2024 14:25
[2024-04-11 14:44] LABS: BASOPHILS # (AUTO) 0.04 K/uL (0.00-0.20); BASOPHILS % (AUTO) 0.3 % (0.0-5.0); EOSINOPHILS % (AUTO) 0.8 % (0.0-8.0); HEMATOCRIT 31.9 % (36-48); IMMATURE GRANULOCYTE ABSOLUTE 0.05 K/uL (0-1); LYMPHOCYTES # (AUTO) 1.4 K/uL (1.0-4.8); LYMPHOCYTES % (AUTO) 10.5 % (21.0-51.0); MEAN CORPUSCULAR HEMOGLOBIN 30.7 pg (27.0-33.0); MEAN CORPUSCULAR HGB CONC 33.2 g/dL (32.0-36.0); MEAN CORPUSCULAR VOLUME 92.5 fL (79-99); MONOCYTES # (AUTO) 1.5 K/uL (0.1-1.0); MONOCYTES % (AUTO) 11.1 % (3.0-13.0); NEUTROPHILS # (AUTO) 10.2 K/uL (1.8-7.7); NEUTROPHILS % (AUTO) 76.9 % (40.0-77.0); PLATELET COUNT (AUTO) 291 K/uL (130-400); RED BLOOD CELL COUNT(AUTO) 3.45 MIL/uL (4.00-5.50); RED CELL DISTRIBUTION WIDTH 14.6 % (11.0-15.5); WHITE BLOOD COUNT (AUTO) 13.2 K/uL (4.8-10.8)
[2024-04-11 15:43] LABS: % IRON SATURATION 3.3 % (22-44)
[2024-04-11] MEDS: cefTRIAXone 1G VIAL IVPB SCH (16:52)
[2024-04-12] VITALS: BP 149/79; PULSE 99; RESP 19; TEMP 98.1
[2024-04-12 03:40] VITALS: O2SAT 95
[2024-04-12 03:58] LABS: BASOPHILS # (AUTO) 0.04 K/uL (0.00-0.20); BASOPHILS % (AUTO) 0.4 % (0.0-5.0); EOSINOPHILS % (AUTO) 1.8 % (0.0-8.0); HEMATOCRIT 31.6 % (36-48); IMMATURE GRANULOCYTE ABSOLUTE 0.07 K/uL (0-1); LYMPHOCYTES # (AUTO) 1.5 K/uL (1.0-4.8); MEAN CORPUSCULAR HEMOGLOBIN 30.9 pg (27.0-33.0); MEAN CORPUSCULAR HGB CONC 32.6 g/dL (32.0-36.0); MEAN CORPUSCULAR VOLUME 94.9 fL (79-99); MONOCYTES # (AUTO) 1.1 K/uL (0.1-1.0); MONOCYTES % (AUTO) 10.2 % (3.0-13.0); NEUTROPHILS # (AUTO) 7.9 K/uL (1.8-7.7); PLATELET COUNT (AUTO) 288 K/uL (130-400); RED BLOOD CELL COUNT(AUTO) 3.33 MIL/uL (4.00-5.50); RED CELL DISTRIBUTION WIDTH 14.6 % (11.0-15.5); WHITE BLOOD COUNT (AUTO) 10.9 K/uL (4.8-10.8)
[2024-04-12 04:00] VITALS: BP 149/82; PULSE 93; RESP 20; TEMP 98.1
[2024-04-12 04:20] LABS: CREATININE 0.6 mg/dL (0.5-1.0); POTASSIUM 3.5 mmol/L (3.5-5.1)
[2024-04-12 08:00] VITALS: BP 145/71; PULSE 88; RESP 20; TEMP 98.2; O2SAT 96
[2024-04-12] MEDS ORDERED: HYDR-4060 PO (11:14)
[2024-04-12 12:00] VITALS: BP 139/75; PULSE 86; RESP 20; TEMP 97.9
--- NOTE | 2024-04-12 13:21 | DS ---
Discharge Summary Hospital Course Summary: Ms. Felipe is a 73-year-old female that was seen and examined on 04/08/2024. Patient reports that she came to the emergency department with a chief complaint of leg pain. Onset was 03/24/2024. Location is to right hip, intermittent and aching aggravated with walking. There was no alleviating factors. Preceding event to hip pain was a fall. Patient states she went to go see her PCP and had x-rays done but they showed no fracture. Patient states since then pain has been becoming progressively worse. Today in the emergency department CBC unremarkable, chemistry unremarkable, no urinalysis has been collected or sent to lab. Emergency room physician recommended that patient be admitted to the hospital for intractable hip pain, so she could be evaluated by orthopedic service. CT pelvis showed acute slightly displaced slightly angulated subcapital fracture of the proximal right femur, without right hip total dislocation. Right hip x-r ay showed slightly displaced right femoral neck fracture without dislocation, both femoral heads are well formed without os DO chondral erosion or radiographic evidence for avascular necrosis. No radiographic evidence for any acute cardiopulmonary process seen on chest x-ray. Dr. Montano was consulted, and did total right hip arthroplasty with no complications, postop recovery was good. Patient worked well with physical therapy although she had severe pain on postop day 1 she was feeling better today. No acute events overnight, she is hemodynamically stable has no complaints. We will discharge her today with home health physical therapy and advise her to follow up with PCP in 2-[address] Montano in 2 weeks Butt Welder(s): Orthopedics - Dr. 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 POSTOPERATIVE DIAGNOSIS: Right femoral neck fracture with osteoarthritis in the right hip. PROCEDURE PERFORMED: Right total hip arthroplasty using the [employer] system. SURGEON: Neo Montano MD ANESTHESIA: General by ARMOND Piper [address] MAINTENANCE CREW WORKER: Cindi VANCE ESTIMATED BLOOD LOSS: 300 mL. SPECIMENS: None. COMPLICATIONS: None. INDICATIONS FOR PROCEDURE: This 73-year-old female actually fell slipping on some transmission fluid at the [email or web address] department 5 days before, initial x-rays were negative. She continued to have pain that worsened, so she came back to the Emergency Room where she was diagnosed as having a displaced femoral neck fracture. The patient was admitted and I was called for consultation. I recommended a hemiarthroplasty, but due to the fact that she was actually getting ready to have a hip replacement and already has a hip replacement on the left side, we offered her right total hip, which she accepted. OPERATIVE COURSE: After informed written consent and identification of the correct operative site in the preoperative holding area, the patient was taken to the operative suite, placed in supine position. General anesthetic was administered by ARMOND Piper and the patient was placed in the left lateral recumbent position on a gel pad and a pegboard held in place with pegs and the right hip was prepped and draped in the usual sterile manner using ChloraPrep and Ioban techniques. After timeout, we made a posterolateral incision over the greater trochanter, taken through subq to the deep fascia. Opened the deep fascia along its fibers, noted a greater trochanteric bursa that was sharply resected. We then removed the external rotators from the posterior intertrochanteric line with electrocautery, preserving the piriformis. We made an L incision in the capsule and evacuated large hemarthrosis. We used an oscillating saw to do a femoral neck cleanup cut. We then used a corkscrew to remove the femoral head from the acetabulum. We released a little bit of the anterior-inferior capsule to better access the acetabulum. We then removed the labrum with electrocautery. We reamed up to a size 49 and chose a 50 cup that we press fit into place. We placed 2 screws in zone 2, both 2 cm. We then attempted snap in our polyethylene liner, but we had to remove a little more of the labral tissue. We then snapped in our posterior wall liner without complication. Our attention was directed to the femoral side where we accessed it with a [id number] retractor. We used a box and chisel to lateralize the canal. We used a canal finder and then broached up to a size 11 and used a +3 neck with high offset. This was a good trial. This was redislocated posteriorly and trials removed. We press fit our size 11 stem. We Rhoades tapered on our high offset +3 head. We reduced it, ran through its range of motion, judged to be stable. Irrigated thoroughly with saline. Piriformis had remained intact. We irrigated thoroughly with saline once again and then closed the fascia with interrupted [id number] #1 Vicryl sutures. We closed the subcutaneous with inverted interrupted 2-0 Vicryl sutures and the skin with skin clips. Applied clean, dry sterile dressing to include Xeroform, 4 x 4's, ABD and tape. The drapes were removed. The patient was rolled supine, transferred on a hospital bed, revived and taken to the recovery room in satisfactory condition. All needle counts, sponge counts and instrument counts were correct. TID: [id number] RECEIPT: [id number] Assessment/Plan: Intractable hip pain due to femoral neck fracture, resolving Right total hip arthroplasty by Dr. Montano Hypertension Asthma Osteopenia Discharge Instructions: ADMISSION DATE : 04/08/2024 DISCHARGE DATE: 04/12/2024 DISPOSITION : Home CONDITION : Stable PLANOGRAPH OPERATOR(S) : Orthopedics - Dr. Montano FOLLOW UP APPOINTMENT(S) : f/u with PCP in one 2-3 days PROCEDURES: Right total hip arthroplasty using the [employer] system. IMAGING (S) : report attached to summary MICROBIOLOGY : None ACTIVITY : With assistance HOME MEDICATIONS : Continued Home Medications: Active Scripts Polyethylene Glycol 3350 (Miralax) 17 Gram Powd.pack, 1 PACKET PO DAILY for constipation for 5 Days, #5 PACKET 0 Refills dissolve in water Prov:WOLFGANG LALA MD 04/12/24 Hydrocodone/Acetaminophen (Hydrocodon-Acetaminophen 5-325) 5 Mg-325 Mg Tablet, 1-2 TAB PO Q4HPRN PRN for pain for 2 Days, #20 TAB 0 Refills Prov:GOOD MEIER MD 04/12/24 Hydrocodone/Acetaminophen ([place] 5-325 Tablet) 1 Each Tablet, 1-2 EACH PO Q6HPRN PRN for pain, #56 TAB Prov:GURVINDER NICOLE MD 12/21/19 Apixaban (Eliquis) 2.5 Mg Tablet, 2.5 MG PO BID, #20 TAB Prov:GURVINDER NICOLE MD 12/21/19 Reported Medications Azelastine HCl (Azelastine HCl) 137 Mcg (0.1 %) Earp.pump, 1 SPRAY NS BID for 30 Days, #30 ML 0 Refills 04/08/24 Mometasone Furoate (Mometasone Furoate) 50 Mcg/Actuation Earp.pump, 1 SPRAY NS DAILY for 30 Days, #17 GM 0 Refills 04/08/24 Budesonide/Formoterol Fumarate (Symbicort 80-4.5 Mcg Inhaler) 80 Mcg-4.5 Mcg/Actuation Inhr, 2 PUFF IH BID for 30 Days, GM 0 Refills 04/08/24 Oxymetazoline HCl (Afrin) 30 Ml Earp, 30 ML NS AD PRN for ALLERGIES, SPRAY 12/18/19 [Nasal Rinse] No Conflict Check, NASAL DAILY 12/18/19 Chlorpheniramine Maleate (Chlorpheniramine Maleate) 4 Mg Tablet, 4 MG PO Q4HPRN PRN for COUGH, TAB 12/18/19 Cetirizine HCl (Zyrtec) 10 Mg Tablet, 10 MG PO DAILY, TAB 12/18/19 Tramadol Hcl (Tramadol HCl) 50 Mg Tablet, 50 MG PO TID, TAB 12/18/19 Albuterol Sulfate (Proair Hfa) 8.5 Gm Hfa.aer.ad, 90 MCG IH BID PRN for ASTHMA 12/18/19 Fluticasone/Vilanterol (Breo Ellipta 100-25 Mcg INH) 1 Each Aer.pow.ba, 1 EACH IH AD 12/18/19 Bepotastine Besilate (Bepreve) 10 Ml Drops, 1 DROP OU AD PRN for ALLERGIES, DROP 12/18/19 Ipratropium [place] (Ipratropium [place]) 30 Ml Earp, 42 MCG NS 3-4 X DAY, SPRAY 12/18/19 Fluticasone Propionate (Fluticasone Propionate) 16 Gm Earp.susp, 50 MG NS BID 12/18/19 Felodipine (Felodipine ER) 5 Mg Tab.er.24h, 5 MG PO AM, TAB 12/18/19 Losartan Potassium (Losartan Potassium) 100 Mg Tablet, 100 MG PO HS, TAB 12/18/19 Cholecalciferol (Vitamin D3) 50,000 Units Cap, 50385 UNITS PO QWEEK, CAP 12/18/19 Discontinued Reported Medications Tamsulosin HCl (Flomax) 0.4 Mg Cap.er.24h, 0.4 MG PO AM, CAPSULE.DR 04/08/24 Colchicine (Colcrys) 0.6 Mg Tab, 0.6 MG PO AD, TAB 04/08/24 Colchicine (Colcrys) 0.6 Mg Tab, 1 TAB PO DAILY for gout pain for 30 Days, #30 TAB 0 Refills 04/08/24 Propranolol HCl (Propranolol HCl) 80 Mg Cap.sa.24h, 80 MG PO HS 04/08/24 Lovastatin (Lovastatin) 20 Mg Tablet, 1 TAB PO DAILY for 30 Days, #30 TAB 0 Refills 04/08/24 Esomeprazole Magnesium (Esomeprazole Magnesium) 40 Mg Capsule.dr, 40 MG PO AM, CAP 04/08/24 Pregabalin (Pregabalin) 100 Mg Capsule, 100 CAP PO TID MDD 3 Capsule(s) for 30 Days, #90 CAP 0 Refills 04/08/24 Metformin HCl (Metformin HCl) 500 Mg Tablet, 1 TAB PO AM for 30 Days, #60 TAB 0 Refills 04/08/24 Sitagliptin Phosphate (Januvia) 100 Mg Tablet, 125 MG PO AM, TAB 04/08/24 Empagliflozin (Jardiance) 25 Mg Tablet, 1 TAB PO DAILY for 30 Days, #30 TAB 0 Refills 04/08/24 Lisinopril (Lisinopril) 10 Mg Tablet, 1 TAB PO DAILY for 30 Days, #30 TAB 0 Refills 04/08/24 Methylprednisolone (Methylprednisolone) 4 Mg Tab.ds.pk, 4 MG PO AD 04/08/24 New Medications: Hydrocodone/Acetaminophen (Hydrocodon-Acetaminophen 5-325) 5 Mg-325 Mg Tablet 1-2 TAB PO Q4HPRN PRN for pain for 2 Days, #20 TAB 0 Refills Polyethylene Glycol 3350 (Miralax) 17 Gram Powd.pack 1 PACKET PO DAILY for constipation for 5 Days, #5 PACKET 0 Refills dissolve in water Continued Medications: Albuterol Sulfate (Proair Hfa) 8.5 Gm Hfa.aer.ad 90 MCG IH BID PRN for ASTHMA Apixaban (Eliquis) 2.5 Mg Tablet 2.5 MG PO BID, #20 TAB Azelastine HCl (Azelastine HCl) 137 Mcg (0.1 %) Earp.pump 1 SPRAY NS BID for 30 Days, #30 ML 0 Refills Bepotastine Besilate (Bepreve) 10 Ml Drops 1 DROP OU AD PRN for ALLERGIES, DROP Budesonide/Formoterol Fumarate (Symbicort 80-4.5 Mcg Inhaler) 80 Mcg-4.5 Mcg/Actuation Inhr 2 PUFF IH BID for 30 Days, GM 0 Refills Cetirizine HCl (Zyrtec) 10 Mg Tablet 10 MG PO DAILY, TAB Chlorpheniramine Maleate (Chlorpheniramine Maleate) 4 Mg Tablet 4 MG PO Q4HPRN PRN for COUGH, TAB Cholecalciferol (Vitamin D3) 50,000 Units Cap 17119 UNITS PO QWEEK, CAP Felodipine (Felodipine ER) 5 Mg Tab.er.24h 5 MG PO AM, TAB Fluticasone Propionate (Fluticasone Propionate) 16 Gm Earp.susp 50 MG NS BID Fluticasone/Vilanterol (Breo Ellipta 100-25 Mcg INH) 1 Each Aer.pow.ba 1 EACH IH AD Hydrocodone/Acetaminophen ([place] 5-325 Tablet) 1 Each Tablet 1-2 EACH PO Q6HPRN PRN for pain, #56 TAB Ipratropium [place] (Ipratropium [place]) 30 Ml Earp 42 MCG NS 3-4 X DAY, SPRAY Losartan Potassium (Losartan Potassium) 100 Mg Tablet 100 MG PO HS, TAB Mometasone Furoate (Mometasone Furoate) 50 Mcg/Actuation Earp.pump 1 SPRAY NS DAILY for 30 Days, #17 GM 0 Refills [Nasal Rinse] () NASAL DAILY Oxymetazoline HCl (Afrin) 30 Ml Earp 30 ML NS AD PRN for ALLERGIES, SPRAY Tramadol Hcl (Tramadol HCl) 50 Mg Tablet 50 MG PO TID, TAB Time spent arranging discharge: 31-60 minutes ATTESTATION BY PHYSICIAN I have seen and examined the patient. I reviewed the documentation, medical decision making, and treatment plan as noted by the resident provider above. I agree with the findings and plan of care. Good Meier MD, NIHITHA MD Apr 12, 2024 13:21
--- NOTE | 2024-04-12 13:23 | NUR ---
report called and given to Lynn SANTOS from [facility].
[2024-04-12] MEDS ORDERED: POLY17PO4 PO (13:32)
--- NOTE | 2024-04-12 14:00 | NUR ---
PATIENT DISCHARGED HOME AT THIS TIME, PATIENT CURRENTLY DENIES HAVING ANY PAIN OR DISCOMFORT.
== END 2024-04-12 13:55 | disposition home health service (06) | DRG 469 ==
LOC: EDH 23:26 → EDHIP 04-08 04:24 → 4DH 04-08 06:23
PROVIDERS: ADMIT Internal Medicine; ATTEND Internal Medicine
PROC: 0SR90JA Replacement of Right Hip Joint with Synthetic Substitute, Uncemented, Open Approach (ICD-10-PCS; principal; 2024-04-09 15:35)
DX: M16.11 Unilateral primary osteoarthritis, right hip (principal); S72.011A Unspecified intracapsular fracture of right femur, initial encounter for closed fracture; I10 Essential (primary) hypertension; W01.0XXA Fall on same level from slipping, tripping and stumbling without subsequent striking against object, initial encounter; J45.909 Unspecified asthma, uncomplicated; Z96.651 Presence of right artificial knee joint; Z96.611 Presence of right artificial shoulder joint; Z96.642 Presence of left artificial hip joint; M85.80 Other specified disorders of bone density and structure, unspecified site; Y92.89 Other specified places as the place of occurrence of the external cause; Y99.8 Other external cause status; Y93.89 Activity, other specified; Z79.51 Long term (current) use of inhaled steroids
CPT/HCPCS: 36415; 71045; 72192; 73502; 73503; 80048; 81001; 83540; 83550; 83735; 84100; 85025; 85610; 85730; 86850; 86900; 86901; 87086; 93005; 94640; 96374; 96375; 96376; 99285; G0378; J0690; J0696; J1100; J1171; J1885; J2175; J2250; J2405; J2704; J2710; J2795; J3010; J3490; J7120; A4600; A4649; A4930; A6223; C1776